=== PATIENT | male | born 1960 | race Hispanic/Latino ===

== ENCOUNTER 2018-11-18 11:09 | Inpatient (IN) | payer SELFPAY ==
[~2018-11-18] VITALS: Ht 177.8 cm; Wt 129.3 kg
[2018-11-18] MEDS ORDERED: SODIUM CHLORIDE 0.9% 1000ML 1,000 ML IV SCH (12:00)
[2018-11-18] MEDS ORDERED: DIATRIZOATE MEGL/DIATRIZOA SOD 30 ML BTL PO ONE ×2 (12:07→12:58)
[2018-11-18 12:17] LABS: BASOPHILS # (AUTO) 0.1 (0.0-0.1); BASOPHILS % 0.2 % (0.0-1.0); HEMATOCRIT 47.5 % (38.2-49.6); HEMOGLOBIN 16.7 g/dL (14.0-18.0); LYMPHOCYTES % 3.6 % (18.0-39.1); MEAN CORPUSCULAR HEMOGLOBIN 28.8 pg (28-32); MEAN CORPUSCULAR HGB CONC 35.2 g/dL (31-35); MEAN CORPUSCULAR VOLUME 81.9 fL (81-99); MONOCYTES # (AUTO) 1.8 (0.2-0.8); MONOCYTES % 6.2 % (4.4-11.3); NEUTROPHILS # (AUTO) 24.9 (2.1-6.9); NEUTROPHILS % 87.2 % (38.7-80.0); PLATELET COUNT 324 x10e3/uL (140-360); RED CELL DISTRIBUTION WIDTH 14.1 % (11.7-14.4)
[2018-11-18 12:28] LABS: AMPHETAMINES SCREEN,URINE NEGATIVE (NEGATIVE); BENZODIAZEPINES SCREEN,URINE NEGATIVE (NEGATIVE); PHENCYCLIDINE SCREEN,URINE NEGATIVE (NEGATIVE)
--- NOTE | 2018-11-18 12:36 | Diagnostic Imaging Report ---
Abdomen/KUB INDICATION: Right-sided abdominal pain, constipation COMPARISON: None. FINDINGS: Bowel: Gaseous distention of the transverse colon. No significant amount of stool in the large bowel. No pneumatosis. Small bowel loops are distended measuring up to 4.7 cm. No pneumatosis. Calcifications: None over the renal shadows or along the expected course of the ureters. Organomegaly: None Lung bases: Clear Bones: Degenerative changes of the spine. No focal osseous lesions. IMPRESSION: Distended small bowel loops suggestive of ileus or low-grade partial small bowel obstruction. Signed by: Dr. Jackie Jarquin MD on 11/18/2018 12:33 PM
[2018-11-18 12:38] LABS: COLOR,URINE BROWN (YELLOW)
[2018-11-18 12:38] LABS: MAGNESIUM 2.8 MG/DL (1.3-2.1)
[2018-11-18 12:39] LABS: CLARITY,URINE TURBID (CLEAR); KETONES,URINE 1+ (NEGATIVE); LEUKOCYTE ESTERASE ,URINE 1+ (NEGATIVE); NITRITE,URINE POSITIVE (NEGATIVE); PROTEIN,URINE DIPSTICK 3+ (NEGATIVE); URINE UROBILINOGEN 12 mg/dL (0.2 - 1)
[2018-11-18 12:40] LABS: AMORPHOUS SEDIMENT,URINE MODERATE (FEW); BACTERIA,URINE MODERATE /HPF; BILIRUBIN,URINE 3+ (NEGATIVE); EPITHELIAL CELLS,URINE FEW /LPF
[2018-11-18] MEDS ORDERED: ONDANSETRON HCL INJ 2 MG/ML VIAL IV NR (12:40)
[2018-11-18] MEDS ORDERED: ACETAMINOPHEN 1000 MG/100 ML IV STA (12:43)
[2018-11-18] MEDS ORDERED: FENTANYL CITRATE/PF 100MCG/2 ML INJ IV NR (12:45)
[2018-11-18 13:04] LABS: ALBUMIN/GLOBULIN RATIO 0.5 (0.8-2.0); ANION GAP 20.5 mmol/L (8-16); CALCIUM 10.3 mg/dL (8.4-10.2); CREATININE, SERUM 1.92 mg/dL (0.72-1.25); POTASSIUM 3.5 mmol/L (3.5-5.1)
[2018-11-18] MEDS ORDERED: PIPER-TAZ 3.375 GM 50 ML IV SCH (13:15)
[2018-11-18] MEDS ORDERED: PIPER-TAZ 3.375 GM 50 ML IV NR (13:30)
[2018-11-18] MEDS: METRONIDAZOLE 500MG/NS 100ML 100 ML IV SCH ×2 (14:06→18:00)
[2018-11-18] MEDS ORDERED: SODIUM CHLORIDE 0.9% 1000ML 1,000 ML IV ONE (14:15)
[2018-11-18 14:25] LABS: LYMPHOCYTES % (MANUAL) 5 % (19-48); MONOCYTES % (MANUAL) 4 % (3.4-9.0); NEUTROPHILS % (MANUAL) 91 % (40-74)
[2018-11-18 14:26] LABS: PLATELET ESTIMATE ADEQUATE; PLATELET MORPHOLOGY COMMENT NORMAL; RBC MORPHOLOGY COMMENT NORMAL
--- NOTE | 2018-11-18 15:25 | NUR ---
3RD BAG OF 0.9% NORMAL SALINE 1000ML BOLUS ADMINISTERED.
--- NOTE | 2018-11-18 15:52 | Diagnostic Imaging Report ---
CT Abdomen And Pelvis Without IV Contrast INDICATION: Abdominal pain, distention, evaluate for obstruction TECHNIQUE: 5 mm collimation axial images obtained from the diaphragm to the level of the pubic symphysis without nonionic intravenous contrast. Oral contrast was administered. RADIATION DOSE: Total DLP: 908.76 mGy*cm Estimated effective dose: (DLP x 0.015 x size factor) mSv CTDIvol has been reviewed. It is below the limits set by the Radiation Protocol Committee (RPC). Dose reduction techniques used: Automated exposure control, adjustment of the mAs and/or kVp according to patient size, standardized low-dose protocol, and/or iterative reconstruction technique. COMPARISON: None. ABDOMEN FINDINGS: Lung Bases: Mild bibasilar atelectasis. Liver: Decreased attenuation consistent with steatosis. Right lobe measures 23 cm in length. No mass. Gallbladder: Present and is markedly dilated with dependently layering subcentimeter stones/sludge. There is mural thickening and extensive pericholecystic inflammation. There is 2 mm calcification in what appears to be the cystic duct (axial image 26, coronal image 67). No intrahepatic biliary ductal dilatation. The common bile duct is not dilated. Pancreas: Diffuse fatty atrophy. No mass or ductal dilatation. Spleen: Normal in attenuation and size without mass. Adrenal Glands: No evidence for mass. Kidneys: Right Kidney: No renal calculus. No cortical mass or hydronephrosis. Left Kidney: No renal calculus. No cortical mass or hydronephrosis. Lymph Nodes: No lymphadenopathy. Aorta: Normal in diameter. Peritoneum/retroperitoneum: There is free fluid anterior to the right pararenal space. No loculated fluid collection. No free air. PELVIS FINDINGS: Bowel: Stomach: Contains enteric contrast and appears normal. Small Bowel: Enteric contrast reaches the mid small bowel. No dilatation or mural thickening. Large Bowel: Mild to moderate burden of stool throughout. No focal mural thickening or dilatation. Appendix: Normal. Bladder: Under distended but otherwise normal.. Prostate: Mildly prominent. Ureters: Not dilated. No pelvic free fluid or fluid collection. Bones: Moderate degenerative changes of the spine with flowing osteophytes of the lower thoracic spine suggestive of DISH. No compression deformities. No destructive lesions. Soft tissues: Mild left gynecomastia. IMPRESSION: 1. Marked gallbladder dilatation and pericholecystic inflammation consistent with acute cholecystitis. Multiple punctate intraluminal gallstones/sludge with suspected gallstone in the cystic duct. 2. No evidence for bowel obstruction or inflammation. Normal appendix. 3. Small amount of abdominal ascites. No pneumoperitoneum. 4. Steatosis and hepatomegaly. Findings discussed with Dr. Walsh at the time of dictation. Confirmed Signed by: Dr. Jackie Jarquin MD on 11/18/2018 3:49 PM
--- NOTE | 2018-11-18 15:58 | NUR ---
4TH BAG OF SODIUM CHLORIDE 0.9% 500CC 0F 1000ML ADMINISTERED.
[2018-11-18] MEDS ORDERED: ONDANSETRON HCL INJ 2 MG/ML VIAL IV PRN (16:30)
[2018-11-18] MEDS ORDERED: PANTOPRAZOLE 40 MG 10ML VIAL IV NR (16:30)
--- NOTE | 2018-11-18 16:33 | NUR ---
2ND HALF OF 4TH BAG OF SODIUM CHLORIDE 0.9% 500CC OF 1000CC RUNNING AT 125ML PER MD ORDERS.
--- OUTSIDE RECORDS SUMMARY | 2018-11-18 16:34 | XMS REPORT ---
Author Author [facility] Address Unknown Phone Unavailable Care Team Providers Care Bar Host Name Role Phone Marco Antonio VELAZQUEZ Unavailable Unavailable Problems This patient has no known problems. Allergies, Adverse Reactions, Alerts This patient has no known allergies or adverse reactions. Medications This patient has no known medications. Results Test Description Test Time Test Comments Text Results Atomic Results Result Comments CT ABDOMEN/PELVIS WO 2018-11-18 15:40:00 [place] [address] Patient Name: AINSLEY COELHO MR #: [id number] : 1960 Age/Sex: 58/M Req #: [id number] Adm Physician: Ordered by: NOLBERTO FONG [employer] CLINICAL NURSE SPECIALIST Report #: [id number] Location: ER Room/Bed: Procedure: [id number] CT/CT ABDOMEN/PELVIS WO Exam Date: 11/18/18 Exam Time: 1500 REPORT STATUS: Signed CT Abdomen And Pelvis Without IV Contrast I NDICATION: Abdominal pain, distention, evaluate for obstruction TECHNIQUE: 5 mm collimation axial images obtained from the diaphragm to the level of the pubic symphysis without nonionic intravenous contrast. Oral contrast was administered. RADIATION DOSE: Total DLP: 908.76 mGy*cm Estimated effective dose: (DLP x 0.015 x size factor) mSv CTDIvol has been reviewed. It is below the limits set by the Radiation Protocol Committee (RPC). Dose reduction techniques used: Automated exposure control, adjustment of the mAs and/or kVp according to patient size, standardized low- dose protocol, and/or iterative reconstruction technique. COMPARISON: None. ABDOMEN FINDINGS: Lung Bases: Mild bibasilar atelectasis. Liver: Decreased attenuation consistent with steatosis. Right lobe measures 23 cm in length. No mass. Gallbladder: Present and is markedly dilated with dependently layering subcentimeter stones/sludge. There is mural thickening and extensive pericholecystic inflammation. There is 2 mm calcification in what appears to be the cystic duct (axial image 26, coronal image 67). No intrahepatic biliary ductal dilatation. The common bile duct is not dilated. Pancreas: Diffuse fatty atrophy. No mass or ductal dilatation. Spleen: Normal in attenuation and size without mass. Adrenal Glands: No evidence for mass. Kidneys: Right Kidney: No renal calculus. No cortical mass or hydronephrosis. Left Kidney: No renal calculus. No cortical mass or hydronephrosis. Lymph Nodes: No lymphadenopathy. Aorta: Normal in diameter. Peritoneum/retroperitoneum: There is free fluid anterior to the right pararenal space. No loculated fluid collection. No free air. PELVIS FINDINGS: Bowel: Stomach: Contains enteric contrast and appears normal. Small Bowel: Enteric contrast reaches the mid small bowel. No dilatation or mural thickening. Large Bowel: Mild to moderate burden of stool throughout. No focal mural thickening or dilatation. Appendix: Normal. Bladder: Under distended but otherwise normal.. Prostate: Mildly prominent. Ureters: Not dilated. No pelvic free fluid or fluid collection. Bones: Moderate degenerative changes of the spine with flowing osteophytes of the lower thoracic spine suggestive of DISH. No compression deformities. No destructive lesions. Soft tissues: Mild left gynecomastia. IMPRESSION: 1. Marked gallbladder dilatation and pericholecystic inflammation consistent with acute cholecystitis. Multiple punctate intraluminal gallstones/sludge with suspected gallstone in the cystic duct. 2. No evidence for bowel obstruction or inflammation. Normal appendix. 3. Small amount of abdominal ascites. No pneumoperitoneum. 4. Steatosis and hepatomegaly. Findings discussed with Dr. Velazquez at the time of dictation. Confirmed Signed by: Dr. Anjel Jarquin MD on 11/18/2018 3:49 PM Dictated By: ANJEL JARQUIN MD 48 Transcribed By: JANET on 11/18/181548 COPY TO: NOLBERTO FONG NP ABDOMEN-1VIEW (KUB) 2018-11-18 12:30:00 [place] [address] Patient Name: AINSLEY COELHO MR #: [id number] : 1960 Age/Sex: 58/M Req #: [id number] Adm Physician: Ordered by: GUNJAN VELAZQUEZ MD Report #: [id number] Location: ER Room/Bed: Procedure: [id number] DX/ABDOMEN-1VIEW (KUB) Exam Date: 11/18/18 Exam Time: 1209 REPORT STATUS: Signed Abdomen/KUB INDICATION: Right-sided abdominal p ain, constipation COMPARISON: None. FINDINGS: Bowel: Gaseous distention of the transverse colon. No significant amount of stool in the large bowel. No pneumatosis. Small bowel loops are distended measuring up to 4.7 cm. No pneumatosis. Calcifications: None over the renal shadows or along the expected course of the ureters. Organomegaly: None Lung bases: Clear Bones: Degenerative changes of the spine. No focal osseous lesions. IMPRESSION: Distended small bowel loops suggestive of ileus or low-grade partial small bowel obstruction. Signed by: Dr. Anjel Jarquin MD on 11/18/2018 12:33 PM Dictated By: ANJEL JARQUIN MD 123 Transcribed By: JANET on 11/18/18 1233 COPY TO: GUNJAN VELAZQUEZ MD
--- NOTE | 2018-11-18 17:42 | NUR ---
Note gaby in EDM - 11/18/18 at 1750 by LAURA MAINTENANCE FLUIDS CHANGED TO 159ML/HR PER MD ORDERS OF REMAINING 4TH BAG OF SODIUM CHLORIDE 0.9%.
--- NOTE | 2018-11-18 17:42 | NUR ---
MAINTENANCE FLUIDS CHANGED TO 150ML/HR PER MD ORDERS OF REMAINING 4TH BAG OF SODIUM CHLORIDE 0.9%.
[2018-11-18 18:28] LABS: CREATINE KINASE MB 0.9 ng/mL (0-5.0)
--- NOTE | 2018-11-18 18:33 | Consultation ---
DATE OF CONSULTATION: November 18, 2018 REFERRING PHYSICIAN: Dr. Welch. HISTORY OF PRESENT ILLNESS: Patient is a 58-year-old male who presents with complaints of abdominal pain. He says he has had pain in the upper abdomen for a week. He says he initially had nausea and vomiting and this has improved. He had evaluation that reveals gallstones. He was sent home with pain medication and antibiotics, but the pain is persisted and got worse. He came back to the emergency room today. Evaluation with a CT of the abdomen reveals very dilated gallbladder with multiple stones and sludge. Calcification appeared separate from the gallbladder, possibly cystic duct or common bile duct. Patient also was noted to be jaundiced with an elevated bilirubin of 6.9. PAST MEDICAL HISTORY: Otherwise unremarkable. He denies chronic medical problems. ALLERGIES: THERE ARE NO KNOWN ALLERGIES. MEDICATIONS: There are no current medications. PAST SURGICAL HISTORY: No previous abdominal surgery. FAMILY HISTORY: Noncontributory. SOCIAL HISTORY: Patient denies smoking cigarettes or drink alcohol. REVIEW OF SYSTEMS: As stated above, otherwise was negative. PHYSICAL EXAMINATION GENERAL: The patient is awake and alert, in no distress. VITAL SIGNS: At this time reveal heart rate of 95, blood pressure is 127/74. HEENT: Reveals slight scleral icterus. NECK: Has no masses. LUNGS: Equal breath sounds, clear bilaterally. CARDIAC: Regular rate and rhythm. ABDOMEN: Distended. There is tenderness in the epigastrium and right upper quadrant. There is no mass. EXTREMITIES: No edema. NEUROLOGIC: Grossly intact. LABORATORY TESTS: White blood cell count was 28,000, hemoglobin 16.7, hematocrit 47.5. Chemistries reveal sodium 128, the creatinine is elevated at 1.9, BUN is 32. Lactic acid is elevated at 20.2. Bilirubin is 6.9. ASSESSMENT: A 58-year-old male with acute cholecystitis and jaundice, possible common bile duct stone. He had been evaluated with MRCP and had given IV fluids for resuscitation, IV antibiotics, and he may benefit either from cholecystectomy or from percutaneous cholecystostomy or cholecystectomy done at later time. This was all explained to the patient including all risks, benefits, and alternatives. He understands. He has had the opportunity to ask questions. Thank you for asking me to see Mr. Barnes. Job#: [id number] RTY
[2018-11-18 19:03] VITALS: BP 120/73
--- NOTE | 2018-11-18 19:03 | NUR ---
PT ARRIVING TO UNIT VIA STRETCHER, PT ALERT AND ORIENTED, NO DISTRESS NOTED, CALL LIGHT IN REACH, INSTRUCTED TO CALL WITH NEEDS
--- NOTE | 2018-11-18 19:41 | Diagnostic Imaging Report ---
EXAM: MRI MRCP WO INDICATION: Acute cholecystitis. Elevated bilirubin COMPARISON: CT of the abdomen and pelvis November 18, 2018 TECHNIQUE: Multiplanar and multisequence imaging was performed of the abdomen without the administration of IV contrast using MRCP protocol. 3-D reformations created of the biliary system. FINDINGS: LOWER THORAX: Unremarkable. LIVER: Hepatic steatosis. GALLBLADDER: Hydropic gallbladder with wall thickening and pericholecystic fluid and inflammation. Small layering gallstones. No intrahepatic biliary dilation. The common bile duct is within normal size limits measuring 5 mm and without filling defect. SPLEEN: Normal PANCREAS: Not well visualized on this exam secondary to motion. Fatty infiltration of the pancreatic head and adjacent inflammation from the gallbladder. ADRENALS: No nodules KIDNEYS/URETERS: No masses or hydronephrosis. GI TRACT: Reactive thickening of the second portion of the duodenum and colon at the splenic flexure. Remainder of the visualized bowel is unremarkable. LYMPH NODES: No lymphadenopathy VESSELS: Within normal limits for technique PERITONEUM / RETROPERITONEUM: Right upper quadrant inflammation without organized fluid collection. BONES: No acute findings SOFT TISSUES: Unremarkable IMPRESSION: Cholelithiasis and acute cholecystitis without choledocholithiasis. Signed by: Dr. Luciana Lane M.D. on 11/18/2018 7:38 PM
[2018-11-18 20:00] VITALS: BP 127/75
[2018-11-18] MEDS: SODIUM CHLORIDE 0.9% 1000ML 1,000 ML IV SCH (20:00)
[2018-11-18] MEDS: PIPER-TAZ 3.375 GM 50 ML IV SCH (21:00)
[2018-11-18 21:02] VITALS: BP 127/75
[2018-11-18] MEDS: MORPHINE SULFATE INJ 4 MG/ML INJ IV PRN (23:32)
[2018-11-19] VITALS (7 sets, daily range): BP systolic 123–141; BP diastolic 66–74
[2018-11-19] MEDS: PIPER-TAZ 3.375 GM 50 ML IV SCH ×3 (01:00→11:51)
[2018-11-19] MEDS: SODIUM CHLORIDE 0.9% 1000ML 1,000 ML IV SCH ×3 (03:23→22:45)
[2018-11-19] MEDS: METRONIDAZOLE 500MG/NS 100ML 100 ML IV SCH ×2 (05:37)
--- NOTE | 2018-11-19 05:39 | NUR ---
PT RESTING IN BED WITH EYES CLOSED, NO DISTRESS NOTED, IV INFUSING PER ORDER, CALL LIGHT IN REACH
[2018-11-19 05:56] LABS: BASOPHILS % 0.1 % (0.0-1.0); HEMOGLOBIN 13.1 g/dL (14.0-18.0); LYMPHOCYTES # (AUTO) 0.9 (1.0-3.2); LYMPHOCYTES % 5.5 % (18.0-39.1); MEAN CORPUSCULAR HEMOGLOBIN 28.5 pg (28-32); MEAN CORPUSCULAR HGB CONC 34.5 g/dL (31-35); MEAN CORPUSCULAR VOLUME 82.6 fL (81-99); MONOCYTES # (AUTO) 1.1 (0.2-0.8); MONOCYTES % 6.8 % (4.4-11.3); NEUTROPHILS # (AUTO) 14.5 (2.1-6.9); NEUTROPHILS % 85.8 % (38.7-80.0); PLATELET COUNT 207 x10e3/uL (140-360); RED CELL DISTRIBUTION WIDTH 14.1 % (11.7-14.4)
[2018-11-19 06:14] LABS: ALANINE AMINOTRANSFERASE 37 IU/L (0-55); ALBUMIN/GLOBULIN RATIO 0.4 (0.8-2.0); ALKALINE PHOSPHATASE 96 IU/L (40-150); ANION GAP 13.4 mmol/L (8-16); BLOOD UREA NITROGEN 23 mg/dL (7-26); BUN/CREATININE RATIO 23 (6-25); CALCIUM 8.3 mg/dL (8.4-10.2); CARBON DIOXIDE 20 mmol/L (22-29); CHLORIDE 102 mmol/L (98-107); CHOL/HDL RATIO 5.9 (3.9-4.7); CHOLESTEROL 89 MD/DL (0-199); CREATININE, SERUM 0.99 mg/dL (0.72-1.25); EST GLOMERULAR FILTRATION RATE > 60 ML/MIN (60-); GLUCOSE 185 mg/dL (74-118); HDL CHOLESTEROL 15 MG/DL (40-60); LDL CHOLESTEROL 49 MG/DL (60-130); POTASSIUM 3.4 mmol/L (3.5-5.1); SODIUM 132 mmol/L (136-145); TRIGLYCERIDES 124 MG/DL (0-149)
[2018-11-19 06:32] LABS: CREATINE KINASE 95 IU/L (30-200)
[2018-11-19] MEDS: MORPHINE SULFATE INJ 4 MG/ML INJ IV PRN ×2 (07:50→13:50)
--- NOTE | 2018-11-19 08:15 | NUR ---
Patient resting in bed, AAOx3. npo, on IV fluids, c/o pain on lower abdomen. medicated with prn pain med. not in any distress. call light in reach family at bed side. Dr Welch had rounds
[2018-11-19] MEDS ORDERED: POTASSIUM CHLORIDE 20MEQ/100ML 200 ML IV ONE (09:15)
[2018-11-19] MEDS: PANTOPRAZOLE 40 MG 10ML VIAL IV SCH (09:45)
[2018-11-19] MEDS: POTASSIUM CHLORIDE 20MEQ/100ML 100 ML IV SCH ×2 (09:45→12:43)
--- NOTE | 2018-11-19 12:17 | History and Physical ---
CHIEF COMPLAINT: Right upper quadrant abdominal pain. HISTORY OF PRESENT ILLNESS: This is a 58-year-old male morbidly obese who came into the ED with complaints of a 5-day history of right upper quadrant abdominal pain that has been ongoing. Patient reports that this began on in the evening time. He initially thought it was some acid reflux but never resolved. He also thought it was constipation, took some stool softeners with no result. Patient then presented to the ED for further evaluation and management and care. While here in the ED, imaging studies showed evidence of acute cholecystitis. General surgery and GI were consulted. REVIEW OF SYSTEMS PERTINENT POSITIVES: Nausea, vomiting, decreased oral intake, dehydration, right upper quadrant abdominal pain. PERTINENT NEGATIVES: Denies any chest pain, palpitations, dysuria, hematuria, frequency, urgency, lightheadedness, dizziness, headache, shortness of breath, cough, congestion, or any other complaints. Rest of the 14-point review of systems reviewed with patient and are negative. ALLERGIES: NO KNOWN DRUG ALLERGIES. HOME MEDICATIONS: None. PAST SURGICAL HISTORY: Reports none. PAST MEDICAL HISTORY: Reports none. FAMILY HISTORY: Hypertension, diabetes. SOCIAL HISTORY: No drugs. No alcohol. Does not smoke. Good social support. VITAL SIGNS: Temperature is 98.2, pulse is 104, respiratory rate is 20, blood pressure 127/69, pulse ox 96% on room air. LABORATORY DATA: Lab findings show white count 16.8, hemoglobin 13, hematocrit 38, platelets of 207. Chemistry: Sodium 133, potassium 3.4, chloride 102, bicarb 20, anion gap 13, BUN is 22, creatinine is 0.99, total bilirubin is 3. LFTs were normal. Troponins were negative. CK-MB negative. LDL 49, lipase level was 24. Urinalysis concerning for underlying UTI. Urine drug screen negative. Serology screen was negative. MICROBIOLOGY: Blood cultures pending. IMAGING STUDIES: CT abdomen and pelvis. Marked gallbladder distention with pericholecystic inflammation consistent with acute cholecystitis. No evidence of bowel obstruction, inflammation. Normal appendix. Small amounts of abdominal ascites. No pneumoperitoneum, steatosis, or hepatomegaly. Abdominal x-ray shows distended small bowel suggestive of at least a low-grade partial small-bowel obstruction. MRCP: cholelithiasis with acute cholecystitis without choledocholithiasis. PHYSICAL EXAM GENERAL: Not in acute distress, though oriented x3, cooperative on examination. HEENT: Head is normocephalic, atraumatic. Eyes: pupils are equal and reactive to light bilaterally. Extraocular movements are intact bilaterally. NECK: Supple. Good range of motion. THROAT: No evidence of any erythema or exudates in the posterior pharynx. Has poor dentition. PULMONARY: Clear to auscultation bilaterally. No wheezing, no rales, no rhonchi, no crackles appreciated. CARDIOVASCULAR: Positive S1 and S2. No murmurs, rubs, or gallops appreciated. ABDOMEN: Soft, nondistended. Bowel sounds present. He has right upper quadrant tenderness on examination. MUSCULOSKELETAL: Strength is 5/5 throughout. No evidence of any musculoskeletal deficits. No weakness appreciated. NEUROLOGIC: Cranial nerves II-XII are grossly intact. No evidence of any neurologic deficits on exam. SKIN: Is intact. Warm to touch. Good cap refill. PSYCHIATRIC: Normal affect and mood. EXTREMITIES: No edema. Good range of motion throughout. IMPRESSIONS 1. Acute cholecystitis. 2. Nausea, vomiting, dehydration. 3. Hypokalemia. PLAN: General surgery was consulted. He is scheduled to have a cholecystectomy laparoscopically later today by general surgery. Continue with pain control, IV fluids. Resume same home medications. Currently his electrolytes are stable. We will get a.m. labs. Also put on IV antibiotics and which he is currently on. He does have an elevated white count which will repeat labs in the morning and this is likely due to acute cholecystitis. Will follow through tomorrow. Likely will be discharged tomorrow. His troponins were negative. So no further workup was needed from that standpoint. Plus, she denies any chest pain on examination nor any history of any chest pain. Job#: [id number] DEVEN
[2018-11-19] MEDS ORDERED: FENTANYL CITRATE/PF 100MCG/2 ML INJ ONE ×2 (14:10→19:52)
[2018-11-19] MEDS ORDERED: KETAMINE HCL INJ 50 MG/ML 10 ML VIAL ONE (14:10)
[2018-11-19] MEDS ORDERED: LIDOCAINE HCL 2% LOCAL INJ 5 ML SDV VIAL INJ ONE (14:24)
[2018-11-19] MEDS ORDERED: ROCURONIUM BROMIDE 10 MG/ML 5ML VIAL ONE (14:24)
[2018-11-19] MEDS ORDERED: SEVOFLURANE INHAL SOLN 250 ML PEN BTL ONE (14:24)
[2018-11-19] MEDS ORDERED: PROPOFOL IV EMULSION 10 MG/ML 20 ML VIAL ONE (14:24)
[2018-11-19 14:31] LABS: CREATINE KINASE MB 0.9 ng/mL (0-5.0)
[2018-11-19] MEDS ORDERED: BUPIVACAINE HCL 0.5% INJ 30 ML VIAL INJ ONE (16:39)
--- NOTE | 2018-11-19 17:46 | NUR ---
Patient off the unit for procedure, AAOx3, family at bedside
[2018-11-19] MEDS ORDERED: ONDANSETRON HCL INJ 2 MG/ML VIAL IV PRN (19:30)
[2018-11-19] MEDS ORDERED: HYDROCODONE/APAP 7.5MG-325MG 1 EA TAB PO PRN (19:30)
[2018-11-19] MEDS ORDERED: HYDROMORPHONE 2MG/ML 2 MG/ML ML ONE (20:11)
--- NOTE | 2018-11-19 20:40 | NUR ---
pt received from PACU alert and oriented x3. Breathing even, unlabored. Skin warm, dry to touch. Denies any distress/discomfort. Dsg to abdomen over 3x trocars and 1x ERIC drain to abdomen. Provided pt with some ice chips. Pt tolerated well. Call light within reach. Will continue to monitor.
--- NOTE | 2018-11-19 22:10 | NUR ---
Emptied 40cc of dark sanguineous drainage from ERIC drain.
--- NOTE | 2018-11-19 23:00 | NUR ---
Pt voided in the urinal 450cc of dark kim urine.
[2018-11-20] VITALS (7 sets, daily range): BP systolic 120–152; BP diastolic 62–77
--- NOTE | 2018-11-20 00:22 | Operative Report ---
DATE OF PROCEDURE: November 19, 2018 PREOPERATIVE DIAGNOSIS: Acute cholecystitis and cholelithiasis. POSTOPERATIVE DIAGNOSIS: Acute gangrenous cholecystitis with cholelithiasis. PROCEDURES 1. Diagnostic laparoscopy. 2. Laparoscopic cholecystectomy. CONTACT CENTER ASSISTANT: None. ANESTHESIA: General. INDICATIONS AND FINDINGS: This is a 58-year-old male who presented with complaints of severe epigastric right upper quadrant abdominal pain, which he had for a week. Workup suggested acute cholecystitis. At surgery, the patient has acutely inflamed gangrenous gallbladder containing multiple small stones. Cystic duct was about 3 mm in diameter. Common bile duct was not well seen. Liver, stomach, and lower abdomen all appeared normal. TECHNIQUE: After adequate general endotracheal anesthesia with the patient in the supine position, the abdomen was prepped and draped in a sterile fashion with ChloraPrep solution. Skin in the umbilicus was infiltrated with 0.5% Marcaine. Incision was made in the umbilicus. Abdominal wall was elevated and Veress needle was introduced. Pneumoperitoneum was then created. A 10-mm trocar and cannula was then passed through the umbilical wound. Laparoscopic camera was introduced. Initial laparoscopy revealed inflammatory process in the right upper quadrant. A 10-mm trocar and cannula was placed in the epigastrium and two 5-mm trocars and cannulas were placed in the right upper quadrant. These were placed under direct vision. There was omentum adherent over an acutely inflamed gallbladder, which appeared gangrenous. Omentum was dissected away from the gallbladder. Gallbladder was tense and was decompressed with a needle. Fundus was grasped and tracked superiorly and adhesions of omentum to the gallbladder were lysed exposing the neck of the gallbladder and neck of the gallbladder scratched and retracted laterally. Peritoneum over the neck of the gallbladder was incised. The gallbladder and cystic duct junction was dissected free. Cystic artery was seen running along the inferior aspect of the gallbladder. This was dissected free and divided between hemoclips. The cystic duct was then divided between hemoclips with 3 clips being left on the common bile duct side. There was a posterior branch of the cystic artery that was also divided between hemoclips. The gallbladder was dissected free from the liver using scissors and electrocautery. Once it was entirely free, it was placed into an Endopouch and brought out through the epigastric cannula and contained multiple small stones. Gallbladder bed was inspected for hemostasis. One point was bleeding which was controlled with electrocautery and it was irrigated with saline. All fluid was aspirated and inspected for hemostasis, which was seen to be adequate. Instruments and cannulas were then removed. Pneumoperitoneum was evacuated. A 19-Romanian Mickey drain was then placed in the abdomen, brought out through the most lateral right upper quadrant cannula site, and placed in Allison's pouch. The wound was inspected for hemostasis once again, which was seen to be adequate. Instruments and cannulas were then removed. Pneumoperitoneum was evacuated. Wounds were then closed. Fascia in the umbilical and epigastric wound closed with 0 Vicryl. Skin to all wounds closed with delilah. Sterile dressings were applied to each wound. The patient tolerated the procedure well. Estimated blood loss was 125 mL. There were no complications. All counts were correct. Patient was taken to the recovery room in satisfactory condition. Job#: [id number] GAU cc:Pam Welch MD
[2018-11-20] MEDS: PIPER-TAZ 3.375 GM 50 ML IV SCH ×5 (05:28→23:50)
[2018-11-20 05:59] LABS: BASOPHILS % 0.2 % (0.0-1.0); HEMATOCRIT 37.4 % (38.2-49.6); HEMOGLOBIN 12.6 g/dL (14.0-18.0); MEAN CORPUSCULAR HGB CONC 33.7 g/dL (31-35); MEAN CORPUSCULAR VOLUME 83.1 fL (81-99); MONOCYTES % 9.2 % (4.4-11.3); NEUTROPHILS # (AUTO) 9.1 (2.1-6.9); PLATELET COUNT 199 x10e3/uL (140-360); RED CELL DISTRIBUTION WIDTH 14.5 % (11.7-14.4)
[2018-11-20 06:20] LABS: ALANINE AMINOTRANSFERASE 28 IU/L (0-55); ALBUMIN 1.8 g/dL (3.5-5.0); ALBUMIN/GLOBULIN RATIO 0.4 (0.8-2.0); ALKALINE PHOSPHATASE 93 IU/L (40-150); BLOOD UREA NITROGEN 16 mg/dL (7-26); BUN/CREATININE RATIO 18 (6-25); CALCIUM 7.9 mg/dL (8.4-10.2); CARBON DIOXIDE 22 mmol/L (22-29); CHLORIDE 105 mmol/L (98-107); CREATININE, SERUM 0.87 mg/dL (0.72-1.25); EST GLOMERULAR FILTRATION RATE > 60 ML/MIN (60-); GLUCOSE 200 mg/dL (74-118); SODIUM 134 mmol/L (136-145)
[2018-11-20] MEDS: MORPHINE SULFATE INJ 4 MG/ML INJ IV PRN ×2 (07:25→20:50)
--- NOTE | 2018-11-20 07:34 | NUR ---
PATIENT IN BED RESTING WITH NO RESPIRATORY DISTRESS. C/O PAIN TO ABDOMEN, PAIN MEDICATION ADMINISTERED ORDERED. 3 TROCAR SITED TO ABDOMEN, ERIC DRAIN TO RIGHT ABDOMEN. SCD IN PLACE. BED IN LOWER AND LOCKED. CALL LIGHT AT REACH.
[2018-11-20] MEDS: PANTOPRAZOLE 40 MG 10ML VIAL IV SCH (09:44)
--- NOTE | 2018-11-20 10:22 | Progress Note ---
DATE: November 20, 2018 MEDICINE PROGRESS NOTE SUBJECTIVE: Patient is doing much better today. He is status post laparoscopic cholecystectomy performed yesterday. He has a drain right now. PHYSICAL EXAMINATION VITAL SIGNS: Temperature is 98.9, pulse is 100, respiratory rate is 18, blood pressure 133/77, pulse ox 95% on room air. GENERAL: Not in acute distress, alert and oriented x3. Cooperative on examination. HEENT: Head is normocephalic and atraumatic. Eyes: Pupils equal, round and reactive to light bilaterally. Extraocular movements intact bilaterally. NECK: Supple. Good range of motion. Throat with no evidence of any erythema or exudates in the posterior pharynx. Has poor dentition. PULMONARY: Clear to auscultation bilaterally. No wheezing. No rales. No rhonchi. No crackles appreciated. CARDIOVASCULAR: Positive S1 and S2. No murmurs, rubs, or gallops appreciated. ABDOMEN: Soft, nondistended and nontender to palpation. Bowel sounds present. MUSCULOSKELETAL: Strength is 5/5 throughout. No evidence of any muscle deficit on examination. No weakness appreciated. NEUROLOGICAL: Cranial nerves II through XII are grossly intact. No evidence of any neurological deficits on exam. SKIN: Intact. Warm to touch. Good cap refill. PSYCHIATRIC: Normal affect and mood. EXTREMITIES: No edema. Good range of motion throughout. LAB FINDINGS: Show white count 11.2, hemoglobin 12.6, hematocrit is 37, and platelets of 199. Chemistries: Sodium 134, potassium 4, chloride 105, bicarb 22, anion gap of 11, BUN 16, creatinine 0.87. His albumin is 1.8. MICROBIOLOGY: Blood cultures, no growth. Urine cultures are pending. IMAGING STUDIES: None currently. IMPRESSION 1. Status post laparoscopic cholecystectomy, now with Levi-Nur drain. 2. Nausea, vomiting and dehydration, all resolved. 3. Abdominal distension. 4. Hypokalemia, resolved. PLAN: At this time, continue with postoperative care. He still has a ERIC drain. He is on clear liquid diet, but he is not eating much. Continue with pain control and antinausea medication. Follow general surgery recommendations. Per general surgery, they recommended another 1 to 2 more days to evaluate for the drainage to improve. Continue with IV antibiotics. Job#: [id number] BARBIE
--- NOTE | 2018-11-20 11:30 | NUR ---
ASSISTED WITH URINAL, PATIENT VOIDED 500CC OF DARK ANCELMO URINE. URINAL EMPTIED AND CLEANSED. BED IN LOWER POSITION, CALL LIGHT AT REACH.
--- NOTE | 2018-11-20 11:33 | NUR ---
SOCIAL WORK INITIAL ASSESSMENT Quill Cleaner to bedside to discuss plan of care with patient/family. CM/SW role and care transitions discussed. Anticipated discharge plan discussed along with duration of care. CM/SW discussed patients right to make decisions in care. CM/SW work hours given. 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 RESOURCES THAT PATIENT MAY BE ABLE TO FOLLOW UP UPON DISCHARGE. PT EDUCATED ON EACH RESOURCE AND UNDERSTANDING HOW TO FOLLOW UP TO SEE IF QUALIFIED FOR EACH RESOURCE. Education Needs: NONE IMM/EPPS given and signed (if applicable): NA Goal for discharge: RETURN HOME INDEPENDENTLY CM/SW left business card at the bedside with contact information. Name and number was also written on the patients whiteboard. Patient verbalized understanding of discussion. CM will follow-up with ongoing discharge and transition of care needs.
[2018-11-20] MEDS: SODIUM CHLORIDE 0.9% 1000ML 1,000 ML IV SCH ×2 (14:57→19:47)
--- NOTE | 2018-11-20 16:18 | NUR ---
PATIENT ASSISTED TO THE RESTROOM AND BACK TO BED. HAD A LARGE BM. 50 CC OF BLOODY FLUID REMOVED FROM ERIC DRAIN. BED IN LOWER POSITION, CALL LIGHT AT REACH.
--- NOTE | 2018-11-20 20:50 | NUR ---
Pt resting in bed, semi-rivera's position, alert and oriented x3 watching tv. No visible s/s of distress/discomfort at this time. Pain to abdomen when moving and coughing. Emptied 20cc of sanguineous drainage with clots. Bandages to abdomen dry and intact. IV fluids to left ac. Pt states tolerating diet without nausea/vomiting. Call light within reach. Will continue to monitor.
[2018-11-21] VITALS (9 sets, daily range): BP systolic 112–139; BP diastolic 60–74
[2018-11-21] MEDS: SODIUM CHLORIDE 0.9% 1000ML 1,000 ML IV SCH (05:00)
[2018-11-21] MEDS: MORPHINE SULFATE INJ 4 MG/ML INJ IV PRN ×2 (05:13→12:24)
[2018-11-21] MEDS: PIPER-TAZ 3.375 GM 50 ML IV SCH ×3 (05:30→18:29)
[2018-11-21 05:56] LABS: BASOPHILS % 0.4 % (0.0-1.0); HEMATOCRIT 35.3 % (38.2-49.6); HEMOGLOBIN 11.7 g/dL (14.0-18.0); LYMPHOCYTES % 12.3 % (18.0-39.1); MEAN CORPUSCULAR HEMOGLOBIN 27.9 pg (28-32); MEAN CORPUSCULAR HGB CONC 33.1 g/dL (31-35); MEAN CORPUSCULAR VOLUME 84.2 fL (81-99); MONOCYTES # (AUTO) 0.7 (0.2-0.8); MONOCYTES % 8.3 % (4.4-11.3); NEUTROPHILS # (AUTO) 6.3 (2.1-6.9); NEUTROPHILS % 77.9 % (38.7-80.0); PLATELET COUNT 186 x10e3/uL (140-360); RED BLOOD COUNT 4.19 x10e6/uL (4.3-5.7); RED CELL DISTRIBUTION WIDTH 14.4 % (11.7-14.4)
[2018-11-21 06:31] LABS: ANION GAP 10.2 mmol/L (8-16); BLOOD UREA NITROGEN 11 mg/dL (7-26); BUN/CREATININE RATIO 14 (6-25); CALCIUM 7.7 mg/dL (8.4-10.2); CARBON DIOXIDE 24 mmol/L (22-29); CHLORIDE 103 mmol/L (98-107); CREATININE, SERUM 0.76 mg/dL (0.72-1.25); EST GLOMERULAR FILTRATION RATE > 60 ML/MIN (60-); GLUCOSE 162 mg/dL (74-118); POTASSIUM 3.2 mmol/L (3.5-5.1); SODIUM 134 mmol/L (136-145)
--- NOTE | 2018-11-21 06:40 | NUR ---
Handoff report rec'd in walking rounds. Pt AOx3, able to verbalize needs. Encouraged patient to sit up at 30 degrees and to use incentive spirometer. Pt vebalized understanding. POC discussed with family at bedside. Call light in reach.
[2018-11-21] MEDS: PANTOPRAZOLE 40 MG 10ML VIAL IV SCH (08:49)
[2018-11-21] MEDS ORDERED: FUROSEMIDE INJ 10 MG/ML 4 ML VIAL IV NR (10:00)
[2018-11-21] MEDS: POTASSIUM CHLORIDE 20 MEQ TAB CR PO SCH ×2 (10:07→17:00)
--- NOTE | 2018-11-21 10:14 | Progress Note ---
DATE: November 21, 2018 MEDICINE PROGRESS NOTE SUBJECTIVE: Patient is doing well today. He was short of breath according to the nursing staff. IV fluids were held. He is not getting up and walking. Will get PT to get the patient ambulating. Lasix will be ordered. PHYSICAL EXAMINATION VITAL SIGNS: Temperature is 96.8, pulse 87, respiratory rate is 20, blood pressure is 134/68, pulse ox 98% on nasal cannula. GENERAL: Not in acute distress, alert and oriented x3. Cooperative on examination. HEENT: Head is normocephalic and atraumatic. Eyes: Pupils equal, round and reactive to light bilaterally. Extraocular movements intact bilaterally. NECK: Supple. Good range of motion. Throat with no evidence of any erythema or exudates in the posterior pharynx. Has poor dentition. PULMONARY: Clear to auscultation bilaterally. No wheezing. No rales. No rhonchi. No crackles appreciated. CARDIOVASCULAR: Positive S1 and S2. No murmurs, rubs, or gallops appreciated. ABDOMEN: Soft, nondistended, nontender to palpation. Bowel sounds present. MUSCULOSKELETAL: Strength is 5/5 throughout. No evidence of any muscle deficit on examination. No weakness appreciated. NEUROLOGICAL: Cranial nerves II through XII are grossly intact. No evidence of any neurological deficits on exam. SKIN: Intact. Warm to touch. Good cap refill. PSYCHIATRIC: Normal affect and mood. EXTREMITIES: No edema. Good range of motion throughout. LAB FINDINGS: Show white count 8, hemoglobin 11.9, hematocrit is 35, platelets of 186. Chemistries: Sodium 134, potassium 3.2, chloride is 103, bicarb is 24, anion gap of 10, BUN is 11, creatinine is 0.76, glucose is 162, and his calcium is 7.7. MICROBIOLOGY: Cultures are negative. IMAGING STUDIES: None. IMPRESSIONS 1. Status post laparoscopic cholecystectomy with Levi-Nur drain. 2. Nausea, vomiting and dehydration, all resolved. 3. Abdominal distension. 4. Hypokalemia. 5. Shortness of breath. PLAN: At this time, give IV Lasix, discontinue IV fluids. Will get chest x-ray as well. Replace potassium. Continue postoperative care. Once cleared by surgery, will discharge home likely tomorrow. Get PT/OT to ambulate the patient. Job#: [id number] TA
--- NOTE | 2018-11-21 12:08 | Diagnostic Imaging Report ---
EXAMINATION: CHEST SINGLE (PORTABLE) INDICATION: Shortness of breath. COMPARISON: None FINDINGS: TUBES and LINES: None. LUNGS: Low lung volumes which decreases sensitivity and specificity for pathology. Central vascular congestion. No kayla pulmonary edema. Mild patchy bibasilar opacities, likely atelectasis. PLEURA: No pleural effusion or pneumothorax. HEART AND MEDIASTINUM: The cardiomediastinal silhouette is unremarkable. BONES AND SOFT TISSUES: No acute osseous lesion. Soft tissues are unremarkable. UPPER ABDOMEN: No free air under the diaphragm. IMPRESSION: Low lung volumes and central vascular congestion. No evidence of pulmonary edema. Mild patchy bibasilar opacities, likely atelectasis. Signed by: Dr. Cristian Flores MD on 11/21/2018 12:05 PM
[2018-11-21] MEDS ORDERED: POTASSIUM CHLORIDE 20 MEQ TAB CR PO SCH (19:00)
[2018-11-22] VITALS (7 sets, daily range): BP systolic 112–140; BP diastolic 65–78
[2018-11-22] MEDS: PIPER-TAZ 3.375 GM 50 ML IV SCH ×4 (00:03→18:03)
[2018-11-22 06:13] LABS: BASOPHILS % 0.5 % (0.0-1.0); EOSINOPHILS % 0.5 % (0.0-6.0); HEMATOCRIT 35.2 % (38.2-49.6); HEMOGLOBIN 11.5 g/dL (14.0-18.0); LYMPHOCYTES # (AUTO) 1.6 (1.0-3.2); LYMPHOCYTES % 25.7 % (18.0-39.1); MEAN CORPUSCULAR HEMOGLOBIN 28.3 pg (28-32); MEAN CORPUSCULAR HGB CONC 32.7 g/dL (31-35); MEAN CORPUSCULAR VOLUME 86.5 fL (81-99); MONOCYTES # (AUTO) 0.6 (0.2-0.8); MONOCYTES % 9.8 % (4.4-11.3); NEUTROPHILS # (AUTO) 3.7 (2.1-6.9); NEUTROPHILS % 61.4 % (38.7-80.0); PLATELET COUNT 217 x10e3/uL (140-360); RED BLOOD COUNT 4.07 x10e6/uL (4.3-5.7); RED CELL DISTRIBUTION WIDTH 14.5 % (11.7-14.4)
[2018-11-22 06:29] LABS: ANION GAP 9.1 mmol/L (8-16); BLOOD UREA NITROGEN 12 mg/dL (7-26); BUN/CREATININE RATIO 14 (6-25); CALCIUM 8.1 mg/dL (8.4-10.2); CARBON DIOXIDE 28 mmol/L (22-29); CHLORIDE 100 mmol/L (98-107); CREATININE, SERUM 0.84 mg/dL (0.72-1.25); EST GLOMERULAR FILTRATION RATE > 60 ML/MIN (60-); GLUCOSE 135 mg/dL (74-118); POTASSIUM 4.1 mmol/L (3.5-5.1); SODIUM 133 mmol/L (136-145)
--- NOTE | 2018-11-22 06:45 | NUR ---
HANDOFF REPORT REC'D DURING WALKING ROUNDS WITH OUTGOING SINGER BACK TENDER NURSE. PT AWAKE AT THIS TIME AND DENIES ANY C/O.
[2018-11-22 06:50] LABS: ANISOCYTOSIS S; LYMPHOCYTES % (MANUAL) 21 % (19-48); MONOCYTES % (MANUAL) 11 % (3.4-9.0); NEUTROPHILS % (MANUAL) 68 % (40-74); PLATELET ESTIMATE ADEQUATE; PLATELET MORPHOLOGY COMMENT NORMAL; POIKILOCYTOSIS S; RBC MORPHOLOGY COMMENT NORMAL
[2018-11-22] MEDS ORDERED: POTASSIUM CHLORIDE 20 MEQ TAB CR PO SCH (09:00)
[2018-11-22] MEDS: PANTOPRAZOLE 40 MG 10ML VIAL IV SCH (09:00)
--- NOTE | 2018-11-22 10:38 | Progress Note ---
DATE: November 22, 2018 MEDICINE PROGRESS NOTE SUBJECTIVE: Patient is doing much better today. General surgery wants to keep him overnight for another day and encourage ambulation. PHYSICAL EXAMINATION VITAL SIGNS: Temperature is 96.2, pulse 80, respiratory rate 18, blood pressure 124/78. Pulse ox 95% on room air. LAB FINDINGS: White count 6.1, hemoglobin 9.5, hematocrit 35, platelets 217. Chemistries: Sodium 133, potassium 4.1, chloride 100, bicarb 20, anion gap 9.1, BUN 12, creatinine 0.8, glucose 135, calcium 8.1. MICROBIOLOGY: Blood and urine cultures were negative. PHYSICAL EXAMINATION GENERAL: Not in acute distress, alert and oriented x3. Cooperative on examination. HEENT: Head is normocephalic and atraumatic. Eyes: Pupils equal, round and reactive to light bilaterally. Extraocular movements intact bilaterally. NECK: Supple. Good range of motion. Throat: No evidence of any erythema or exudates in the posterior pharynx. Has poor dentition. PULMONARY: Clear to auscultation bilaterally. No wheezing. No rales. No rhonchi. No crackles appreciated. CARDIOVASCULAR: Positive S1 and S2. No murmurs, rubs, or gallops appreciated. ABDOMEN: Soft, nondistended, nontender to palpation. Bowel sounds present. MUSCULOSKELETAL: Strength is 5/5 throughout. No evidence of any musculoskeletal deficit on examination. No weakness appreciated. NEUROLOGICAL: Cranial nerves II through XII are grossly intact. No evidence of any neurological deficits on exam. SKIN: Intact. Warm to touch. Good cap refill. PSYCHIATRIC: Normal affect and mood. EXTREMITIES: No edema. Good range of motion throughout. IMPRESSIONS 1. Status post laparoscopic cholecystectomy with Levi-Nur drain. 2. Nausea, vomiting and dehydration, all resolved. 3. Abdominal distension, resolved. 4. Hypokalemia, resolved. 5. Shortness of breath, resolved. PLAN: At this time, get a.m. labs. The patient will be here overnight to monitor his ambulation status. He is tolerating diet well. Pain is well controlled. Chest x-ray shows no evidence of pulmonary edema. Otherwise, he is doing much better. We will monitor him overnight and likely discharge home tomorrow. Job#: [id number]
--- NOTE | 2018-11-22 19:04 | NUR ---
received patient sleeping in bed, easily awakes. aaox3. denies needs at this time. patient in stable condition. bed locked and in lowest position, call light within reach. encouraged to call for assistance as needed, patient verbalized understanding.
[2018-11-23] VITALS: BP 122/65
[2018-11-23] MEDS: PIPER-TAZ 3.375 GM 50 ML IV SCH ×3 (00:09→12:14)
[2018-11-23 04:00] VITALS: BP 110/59
[2018-11-23 08:26] VITALS: BP 126/79
[2018-11-23] MEDS: PANTOPRAZOLE 40 MG 10ML VIAL IV SCH (09:00)
[2018-11-23 11:01] VITALS: BP 126/79
[2018-11-23 12:00] VITALS: BP 110/63
--- NOTE | 2018-11-23 12:00 | NUR ---
SITTING IN BS CHAIR, CALL LIGHT WITHIN REACH
--- NOTE | 2018-11-23 15:23 | NUR ---
MD SOW INTO SEE PT, DISCUSSED POC, REMOVED ERIC DRAIN, DRESSING APPLIED, PT TOLERATED WELL
[2018-11-23] MEDS ORDERED: CEFUROXIME500 MG PO (15:28)
[2018-11-23] MEDS ORDERED: TYLENOL # 31 EA PO (15:30)
--- NOTE | 2018-11-23 17:01 | NUR ---
PT WHEELED OFF UNIT VIA WC FOR DISCHARGE, NO CHANGE IN CONDITION
--- NOTE | 2018-11-23 18:02 | Discharge Summary ---
FINAL DISCHARGE DIAGNOSES 1. Status post laparoscopic cholecystectomy with removal of Levi-Nur drain. 2. Nausea, vomiting, dehydration, all resolved. 3. Abdominal distention, resolved. 4. Hypokalemia, resolved. 5. Shortness of breath, resolved. CONSULTANTS: General surgery. VITAL SIGNS: His temperature was 95.8, pulse 79, respiratory rate is 20, blood pressure 126/79, pulse ox 99% on room air. LAB FINDINGS: Show white count of 6.1, hemoglobin 11.5, hematocrit 35, platelets of 217. Chemistry: Sodium 133, potassium is 4.1, chloride is 100, bicarb is 28, anion gap of 9, BUN is 12, creatinine is 0.84. Urinalysis was negative. Blood cultures were negative greater than 72 hours. Urine cultures were negative as well. IMAGING STUDIES: CT abdomen and pelvis showed evidence of an acute cholecystitis. Abdominal x-ray showed small bowel loops concerning for ileus. MRCP shows cholelithiasis and acute cholecystitis with doubt choledocholithiasis. Chest x-ray shows mild patchy opacities likely atelectasis. HOSPITAL COURSE: This is a 58-year-old male, morbid obese, came in with abdominal pain, found to have acute cholecystitis on imaging studies. General surgery was consulted. Patient underwent a laparoscopic cholecystectomy and a ERIC drain while in the hospital. Patient's hospital course was prolonged due to the fact that he continues to have abdominal pain and he has significant drainage from the ERIC drain. Patient improves throughout the hospital course. ERIC drain was removed prior to being discharged and stable by the general surgery for discharge home. He was tolerating diet well with no complaints. He had no more abdominal pain. No more nausea or vomiting. He is afebrile. White count was normal. On the day of discharge, vital signs stable, labs remained stable. The patient was seen, evaluated and examined thoroughly on the day of discharge, no other complaints. Patient verbalized understanding and agrees with plan of care to follow up accordingly as an outpatient with the primary care physician in 1 week and general surgery in 1 week's time. MEDICATIONS: See med reconciliation form including Tylenol No. 3. DISPOSITION: Home. CONDITION: Stable. DIET: Heart-healthy. In the event of any worsening symptoms, patient was advised to come back to the ED for further evaluation. Discharge summary took greater than 35 minutes. Job#: [id number] LIU
== END 2018-11-23 16:30 | disposition home or self-care (01) | DRG 418 ==
LOC: ER 11:09 → ERHOLD 16:31 → MED/SURG 19:03
PROVIDERS: ADMIT Internal Medicine; ATTEND Internal Medicine
PROC: 0FT44ZZ Resection of Gallbladder, Percutaneous Endoscopic Approach (ICD-10-PCS; principal; 2018-11-19 10:00)
DX: K80.00 Calculus of gallbladder with acute cholecystitis without obstruction (principal); Z68.41 Body mass index [BMI] 40.0-44.9, adult; E86.0 Dehydration; E87.6 Hypokalemia; E66.01 Morbid (severe) obesity due to excess calories; R06.02 Shortness of breath
CPT/HCPCS: 36415; 71045; 74018; 74176; 74181; 80048; 80053; 80061; 80307; 81001; 82150; 82550; 82553; 82948; 83605; 83690; 83735; 84484; 85025; 87040; 87086; 87400; 88304; 93005; 99284; J1940; J2001; J2270; J2405; J2543; J3480; J7030

== ENCOUNTER 2022-10-09 19:04 | Inpatient (IN) | payer SELFPAY ==
[~2022-10-09] VITALS: Ht 175.3 cm; Wt 88.7 kg
[~2022-10-09 19:04] MED LIST: CEFUROXIME500 MG PO; TYLENOL # 31 EA PO
[2022-10-09] MEDS ORDERED: SODIUM CHLORIDE 0.9% 1000ML 1,000 ML IV ONE ×2 (19:30)
[2022-10-09] MEDS ORDERED: SODIUM CHLORIDE 0.9% 1000ML 2,000 ML ONE (19:42)
[2022-10-09] MEDS ORDERED: PIPERACILLIN/TAZOBACTAM 3.375 GM VIAL ONE (19:42)
[2022-10-09 19:54] LABS: BASOPHILS % 0.2 % (0.0-1.0); HEMATOCRIT 32.9 % (38.2-49.6); HEMOGLOBIN 11.3 g/dL (14.0-18.0); LYMPHOCYTES # (AUTO) 1.2 (1.0-3.2); LYMPHOCYTES % 10.6 % (18.0-39.1); MEAN CORPUSCULAR HEMOGLOBIN 29.2 pg (28-32); MEAN CORPUSCULAR HGB CONC 34.3 g/dL (31-35); MONOCYTES # (AUTO) 0.8 (0.2-0.8); MONOCYTES % 7.1 % (4.4-11.3); NEUTROPHILS # (AUTO) 9.5 (2.1-6.9); NEUTROPHILS % 81.6 % (38.7-80.0); PLATELET COUNT 252 x10e3/uL (140-360); RED BLOOD COUNT 3.87 x10e6/uL (4.3-5.7); RED CELL DISTRIBUTION WIDTH 13.2 % (11.7-14.4)
[2022-10-09 20:51] LABS: ALBUMIN 2.1 g/dL (3.5-5.0); ALBUMIN/GLOBULIN RATIO 0.8 (0.8-2.0); ALKALINE PHOSPHATASE 49 IU/L (40-150); ANION GAP 13.5 mmol/L (8-16); BLOOD UREA NITROGEN 18 mg/dL (7-26); BUN/CREATININE RATIO 28 (6-25); CARBON DIOXIDE 26 mmol/L (22-29); CHLORIDE 102 mmol/L (98-107); CREATININE, SERUM 0.65 mg/dL (0.72-1.25); GLUCOSE 93 mg/dL (74-118); SODIUM 140 mmol/L (136-145)
[2022-10-09 20:53] LABS: ALANINE AMINOTRANSFERASE < 6 IU/L (0-55); CALCIUM 6.8 mg/dL (8.4-10.2); POTASSIUM 1.5 mmol/L (3.5-5.1)
[2022-10-09] MEDS ORDERED: CALCIUM CHLORIDE 10% 1.36 MEQ/ML 10ML SYR IV STA (20:57)
[2022-10-09] MEDS ORDERED: LACTATED RINGER'S 1,000 ML INJ ONE (21:00)
[2022-10-09] MEDS ORDERED: POTASSIUM CHLORIDE 20MEQ/100ML 100 ML IV STA (21:00)
[2022-10-09 21:07] LABS: CREATINE KINASE MB 5.2 ng/mL (0-5.0)
[2022-10-09 21:08] LABS: MAGNESIUM 1.4 MG/DL (1.3-2.1); PHOSPHORUS 1.6 MG/DL (2.3-4.7)
[2022-10-09] MEDS ORDERED: IOPAMIDOL 370 MG/ML 100 ML INFUS..BTL INJ ONE (21:10)
[2022-10-09] MEDS ORDERED: GUAIFENESIN/DEXTROMETHORPHAN LIQD 5 ML UDC PO PRN (21:15)
[2022-10-09] MEDS: POTASSIUM CHLORIDE 20 MEQ TAB CR PO SCH (21:15)
[2022-10-09] MEDS ORDERED: THIAMINE HCL 100 MG TAB PO ONE (21:15)
[2022-10-09] MEDS ORDERED: MAGNESIUM/ALUMINUM/SIMETHICONE 30 ML UDC PO PRN (21:15)
[2022-10-09] MEDS ORDERED: HYDRALAZINE HCL 20 MG/ML VIAL IV PRN (21:15)
[2022-10-09] MEDS ORDERED: POTASSIUM PHOSPHATE 15 MM in SODIUM CHLORIDE 0.9% 250ML 250 ML IV ONE (21:15)
[2022-10-09] MEDS ORDERED: LACTATED RINGER'S 1,000 ML IV ONE (21:15)
[2022-10-09] MEDS ORDERED: ONDANSETRON HCL INJ 2MG/ML 2ML 2 MG/ML VIAL IV PRN (21:15)
[2022-10-09] MEDS ORDERED: ACETAMINOPHEN 325 MG TAB PO PRN (21:15)
[2022-10-09] MEDS ORDERED: LACTATED RINGER'S 1,000 ML ONE (21:16)
[2022-10-09] MEDS: MULTIVITAMINS/MINERALS TAB PO SCH (21:24)
[2022-10-09] MEDS ORDERED: DEXTROSE 50% SYRINGE 50 ML IV PRN (21:30)
[2022-10-09 21:53] LABS: FREE THYROXINE INDEX 1.9193 (1.4-3.8); THYROID STIMULATING HORMONE 0.33 uIU/mL (0.350-4.940)
[2022-10-09] MEDS: ONDANSETRON HCL INJ 2MG/ML 2ML 2 MG/ML VIAL IV PRN (22:30)
[2022-10-09] MEDS ORDERED: POTASSIUM CHLORIDE 20MEQ/100ML 100 ML IV ONE (23:00)
[2022-10-09] MEDS: KCL 20MEQ/.9 SOD CHL 1,000 ML IV SCH (23:38)
[2022-10-09 23:54] LABS: CLARITY,URINE SL CLOUDY (CLEAR); COLOR,URINE YELLOW (YELLOW); KETONES,URINE NEGATIVE (NEGATIVE); LEUKOCYTE ESTERASE ,URINE NEGATIVE (NEGATIVE); NITRITE,URINE NEGATIVE (NEGATIVE); PROTEIN,URINE DIPSTICK NEGATIVE (NEGATIVE); URINE UROBILINOGEN 0.2 mg/dL (0.2 - 1)
[2022-10-10] VITALS (23 sets, daily range): BP systolic 80–109; BP diastolic 50–84
[2022-10-10] LABS: BACTERIA,URINE FEW /HPF; EPITHELIAL CELLS,URINE MANY /LPF; RBC,URINE 0-5 /HPF (0-5); WBC,URINE (MAN) 0-5 /HPF (0-5)
[2022-10-10] MEDS: KCL 20MEQ/.9 SOD CHL 1,000 ML IV SCH ×2 (01:10→17:24)
[2022-10-10] MEDS: POTASSIUM CHLORIDE 20 MEQ TAB CR PO SCH (01:53)
[2022-10-10] MEDS ORDERED: THIAMINE HCL 100 MG TAB ONE (02:05)
[2022-10-10 06:59] LABS: MAGNESIUM 1.3 MG/DL (1.3-2.1); PHOSPHORUS 1.1 MG/DL (2.3-4.7)
[2022-10-10 07:29] LABS: BASOPHILS % 0.1 % (0.0-1.0); HEMOGLOBIN 7.7 g/dL (14.0-18.0); LYMPHOCYTES # (AUTO) 1.1 (1.0-3.2); LYMPHOCYTES % 10.6 % (18.0-39.1); MEAN CORPUSCULAR HEMOGLOBIN 29.3 pg (28-32); MEAN CORPUSCULAR HGB CONC 34.8 g/dL (31-35); MONOCYTES # (AUTO) 0.9 (0.2-0.8); MONOCYTES % 8.2 % (4.4-11.3); NEUTROPHILS # (AUTO) 8.3 (2.1-6.9); NEUTROPHILS % 80.5 % (38.7-80.0); PLATELET COUNT 220 x10e3/uL (140-360); RED BLOOD COUNT 2.63 x10e6/uL (4.3-5.7); RED CELL DISTRIBUTION WIDTH 13.2 % (11.7-14.4)
[2022-10-10] MEDS: INSULIN REGULAR, HUMAN 100 UNIT/1 ML SQ SCH ×4 (07:30→21:00)
[2022-10-10 07:45] LABS: HEMATOCRIT 22.1 % (38.2-49.6)
[2022-10-10 07:47] LABS: ALKALINE PHOSPHATASE 48 IU/L (40-150); ANION GAP 13.5 mmol/L (8-16); BLOOD UREA NITROGEN 13 mg/dL (7-26); BUN/CREATININE RATIO 22 (6-25); CALCIUM 7.9 mg/dL (8.4-10.2); CARBON DIOXIDE 22 mmol/L (22-29); CHLORIDE 110 mmol/L (98-107); CREATININE, SERUM 0.59 mg/dL (0.72-1.25); GLUCOSE 96 mg/dL (74-118); SODIUM 144 mmol/L (136-145)
[2022-10-10 07:53] LABS: ALANINE AMINOTRANSFERASE < 6 IU/L (0-55)
[2022-10-10 07:56] LABS: POTASSIUM 1.5 mmol/L (3.5-5.1)
[2022-10-10 08:02] LABS: ALBUMIN 2.2 g/dL (3.5-5.0); ALBUMIN/GLOBULIN RATIO 0.8 (0.8-2.0)
[2022-10-10] MEDS: MULTIVITAMINS/MINERALS TAB PO SCH (08:16)
[2022-10-10] MEDS: POTASSIUM CHLORIDE 20MEQ/100ML 100 ML IV SCH ×6 (08:16→20:49)
[2022-10-10] MEDS ORDERED: MAGNESIUM SULFATE 2GM/50ML 50 ML IV ONE ×2 (09:00→18:30)
[2022-10-10 12:04] LABS: ANION GAP 14.7 mmol/L (8-16); CALCIUM 7.9 mg/dL (8.4-10.2); CREATININE, SERUM 0.59 mg/dL (0.72-1.25); MAGNESIUM 1.7 MG/DL (1.3-2.1)
[2022-10-10 12:08] LABS: POTASSIUM 1.7 mmol/L (3.5-5.1)
[2022-10-10 13:00] LABS: PHOSPHORUS 1.1 MG/DL (2.3-4.7)
[2022-10-10 15:05] LABS: ALBUMIN 2.5 g/dL (3.5-5.0); ALBUMIN/GLOBULIN RATIO 1.1 (0.8-2.0); ALKALINE PHOSPHATASE 50 IU/L (40-150); ANION GAP 10.6 mmol/L (8-16); BLOOD UREA NITROGEN 12 mg/dL (7-26); BUN/CREATININE RATIO 21 (6-25); CALCIUM 7.3 mg/dL (8.4-10.2); CARBON DIOXIDE 23 mmol/L (22-29); CHLORIDE 108 mmol/L (98-107); CREATININE, SERUM 0.57 mg/dL (0.72-1.25); GLUCOSE 78 mg/dL (74-118); SODIUM 140 mmol/L (136-145)
[2022-10-10 15:06] LABS: ALANINE AMINOTRANSFERASE < 6 IU/L (0-55)
[2022-10-10 15:07] LABS: POTASSIUM 1.6 mmol/L (3.5-5.1)
[2022-10-10] MEDS ORDERED: POTASSIUM CHLORIDE 20 MEQ TAB CR PO ONE ×2 (15:30→18:45)
[2022-10-10] MEDS ORDERED: ENOXAPARIN SOD INJ 40 MG/0.4 ML SYR SC SCH (17:00)
[2022-10-10 18:16] LABS: MAGNESIUM 1.7 MG/DL (1.3-2.1)
[2022-10-10 18:17] LABS: POTASSIUM 1.8 mmol/L (3.5-5.1)
[2022-10-10] MEDS: LACTOBACILLUS ACIDOPHILUS CAPSULE PO SCH (20:48)
[2022-10-10] MEDS: LEVOFLOXACIN 500MG/D5W 100ML 100 ML IV SCH (20:48)
[2022-10-10 20:52] LABS: IRON 61 ug/dL (65-175); TRANSFERRIN < 70 mg/dL (174-364)
[2022-10-10] MEDS: METRONIDAZOLE 750MG/NS 150ML 150 ML IV SCH (21:46)
[2022-10-10] MEDS ORDERED: METRONIDAZOLE 500MG/NS 100ML 200 ML IV ONE (21:51)
[2022-10-11] VITALS (45 sets, daily range): BP systolic 67–101; BP diastolic 42–68
[2022-10-11] MEDS: POTASSIUM CHLORIDE 20MEQ/100ML 100 ML IV SCH ×4 (00:06→11:00)
[2022-10-11] MEDS: KCL 20MEQ/.9 SOD CHL 1,000 ML IV SCH ×3 (03:00→23:52)
[2022-10-11 05:06] LABS: BASOPHILS % 0.1 % (0.0-1.0); EOSINOPHILS % 0.1 % (0.0-6.0); LYMPHOCYTES % 13.3 % (18.0-39.1); MEAN CORPUSCULAR HEMOGLOBIN 28.6 pg (28-32); MEAN CORPUSCULAR HGB CONC 35.8 g/dL (31-35); MONOCYTES # (AUTO) 0.5 (0.2-0.8); MONOCYTES % 6.4 % (4.4-11.3); NEUTROPHILS # (AUTO) 6.1 (2.1-6.9); NEUTROPHILS % 79.7 % (38.7-80.0); PLATELET COUNT 155 x10e3/uL (140-360); RED BLOOD COUNT 2.24 x10e6/uL (4.3-5.7); RED CELL DISTRIBUTION WIDTH 13.8 % (11.7-14.4)
[2022-10-11 05:09] LABS: HEMATOCRIT 17.9 % (38.2-49.6); HEMOGLOBIN 6.4 g/dL (14.0-18.0); MEAN CORPUSCULAR VOLUME 79.9 fL (81-99)
[2022-10-11 05:29] LABS: ANION GAP 9.9 mmol/L (8-16); CREATININE, SERUM 0.56 mg/dL (0.72-1.25); POTASSIUM 2.9 mmol/L (3.5-5.1)
[2022-10-11 05:33] LABS: CALCIUM 6.7 mg/dL (8.4-10.2)
[2022-10-11] MEDS ORDERED: SODIUM CHLORIDE 0.9% 250ML 250 ML IV ONE ×2 (06:45→18:15)
[2022-10-11] MEDS: METRONIDAZOLE 750MG/NS 150ML 150 ML IV SCH ×3 (06:50→21:50)
[2022-10-11] MEDS: INSULIN REGULAR, HUMAN 100 UNIT/1 ML SQ SCH ×4 (07:30→22:04)
[2022-10-11] MEDS: DICYCLOMINE HCL 20 MG TAB PO SCH ×4 (08:06→21:50)
[2022-10-11] MEDS: MULTIVITAMINS/MINERALS TAB PO SCH (08:07)
[2022-10-11] MEDS: LACTOBACILLUS ACIDOPHILUS CAPSULE PO SCH ×3 (08:07→21:50)
[2022-10-11] MEDS ORDERED: CALCIUM CHLORIDE 13.6 MEQ in SODIUM CHLORIDE 0.9% 100 ML IV ONE (09:30)
[2022-10-11 09:31] LABS: HIV 1&2 AB SCREEN NON-REACTIVE (NONREACTIVE)
[2022-10-11] MEDS: MIDODRINE 2.5 MG TAB PO SCH ×2 (13:25→17:19)
[2022-10-11] MEDS ORDERED: SODIUM CHLORIDE 0.9% 250ML 250 ML ONE (14:42)
[2022-10-11 18:08] LABS: LYMPHOCYTES # (AUTO) 0.8 (1.0-3.2); LYMPHOCYTES % 13.6 % (18.0-39.1); MEAN CORPUSCULAR HEMOGLOBIN 28.5 pg (28-32); MEAN CORPUSCULAR HGB CONC 33.2 g/dL (31-35); MONOCYTES # (AUTO) 0.4 (0.2-0.8); MONOCYTES % 6.2 % (4.4-11.3); NEUTROPHILS # (AUTO) 4.8 (2.1-6.9); NEUTROPHILS % 79.4 % (38.7-80.0); PLATELET COUNT 135 x10e3/uL (140-360); RED BLOOD COUNT 2.35 x10e6/uL (4.3-5.7); RED CELL DISTRIBUTION WIDTH 13.7 % (11.7-14.4)
[2022-10-11 18:11] LABS: HEMATOCRIT 20.2 % (38.2-49.6); HEMOGLOBIN 6.7 g/dL (14.0-18.0)
[2022-10-11 18:24] LABS: ANION GAP 10.2 mmol/L (8-16); CREATININE, SERUM 0.55 mg/dL (0.72-1.25); POTASSIUM 3.2 mmol/L (3.5-5.1)
[2022-10-11 18:27] LABS: CALCIUM 6.9 mg/dL (8.4-10.2)
[2022-10-11] MEDS ORDERED: LACTATED RINGER'S 500 ML IV ONE (18:30)
[2022-10-11] MEDS: LEVOFLOXACIN 500MG/D5W 100ML 100 ML IV SCH (19:36)
[2022-10-12] VITALS (72 sets, daily range): BP systolic 65–117; BP diastolic 49–87
[2022-10-12] MEDS: VASOPRESSIN 60 UNIT in DEXTROSE 5% 50ML 57 ML IV PRN ×2 (01:26→14:15)
[2022-10-12] MEDS ORDERED: CHOLESTYRAMINE 4 GM PACKET PO ONE (02:30)
[2022-10-12 05:06] LABS: BASOPHILS % 0.2 % (0.0-1.0); EOSINOPHILS % 0.2 % (0.0-6.0); HEMATOCRIT 23.1 % (38.2-49.6); HEMOGLOBIN 7.8 g/dL (14.0-18.0); LYMPHOCYTES % 18.1 % (18.0-39.1); MEAN CORPUSCULAR HGB CONC 33.8 g/dL (31-35); MEAN CORPUSCULAR VOLUME 85.9 fL (81-99); MONOCYTES # (AUTO) 0.3 (0.2-0.8); NEUTROPHILS # (AUTO) 4.1 (2.1-6.9); NEUTROPHILS % 74.8 % (38.7-80.0); PLATELET COUNT 146 x10e3/uL (140-360); RED BLOOD COUNT 2.69 x10e6/uL (4.3-5.7)
[2022-10-12 05:26] LABS: ALBUMIN 2.1 g/dL (3.5-5.0); ALBUMIN/GLOBULIN RATIO 1.1 (0.8-2.0); ALKALINE PHOSPHATASE 40 IU/L (40-150); ANION GAP 9.3 mmol/L (8-16); BLOOD UREA NITROGEN 6 mg/dL (7-26); BUN/CREATININE RATIO 11 (6-25); CARBON DIOXIDE 21 mmol/L (22-29); CHLORIDE 110 mmol/L (98-107); CREATININE, SERUM 0.54 mg/dL (0.72-1.25); GLUCOSE 120 mg/dL (74-118); POTASSIUM 3.3 mmol/L (3.5-5.1); SODIUM 137 mmol/L (136-145)
[2022-10-12 05:29] LABS: ALANINE AMINOTRANSFERASE < 6 IU/L (0-55)
[2022-10-12] MEDS: METRONIDAZOLE 750MG/NS 150ML 150 ML IV SCH ×3 (05:42→22:09)
[2022-10-12] MEDS: NOREPINEPHRINE 8 MG/D5W 250 ML 250 ML IV SCH (06:00)
[2022-10-12] MEDS ORDERED: NOREPINEPHRINE 8 MG/D5W 250 ML 250 ML ONE (06:04)
[2022-10-12] MEDS: INSULIN REGULAR, HUMAN 100 UNIT/1 ML SQ SCH ×4 (07:30→21:01)
[2022-10-12] MEDS: LACTOBACILLUS ACIDOPHILUS CAPSULE PO SCH ×3 (10:45→20:39)
[2022-10-12] MEDS: CHOLESTYRAMINE 4 GM PACKET PO SCH (10:45)
[2022-10-12] MEDS: MULTIVITAMINS/MINERALS TAB PO SCH (10:45)
[2022-10-12] MEDS: KCL 20MEQ/.9 SOD CHL 1,000 ML IV SCH ×2 (10:46→18:01)
[2022-10-12] MEDS: POTASSIUM CHLORIDE 20MEQ/100ML 100 ML IV SCH ×2 (10:46→13:50)
[2022-10-12] MEDS: DICYCLOMINE HCL 20 MG TAB PO SCH ×4 (10:46→20:39)
[2022-10-12] MEDS: MIDODRINE 2.5 MG TAB PO SCH ×3 (10:46→17:14)
[2022-10-12] MEDS ORDERED: POTASSIUM CHLORIDE 20MEQ/100ML 100 ML IV SCH (14:00)
[2022-10-12] MEDS: LEVOFLOXACIN 500MG/D5W 100ML 100 ML IV SCH (20:40)
[2022-10-12] MEDS: ONDANSETRON HCL INJ 2MG/ML 2ML 2 MG/ML VIAL IV PRN (20:52)
[2022-10-13] VITALS (87 sets, daily range): BP systolic 92–121; BP diastolic 65–87
[2022-10-13] MEDS ORDERED: DIPHENOXYLATE/ATROPINE TAB PO STA (03:08)
[2022-10-13] MEDS: VASOPRESSIN 60 UNIT in DEXTROSE 5% 50ML 57 ML IV PRN (04:36)
[2022-10-13] MEDS: KCL 20MEQ/.9 SOD CHL 1,000 ML IV SCH ×2 (05:00→16:25)
[2022-10-13 05:01] LABS: BASOPHILS % 0.1 % (0.0-1.0); EOSINOPHILS % 0.2 % (0.0-6.0); HEMATOCRIT 26.2 % (38.2-49.6); HEMOGLOBIN 8.9 g/dL (14.0-18.0); LYMPHOCYTES # (AUTO) 1.5 (1.0-3.2); LYMPHOCYTES % 13.4 % (18.0-39.1); MEAN CORPUSCULAR HEMOGLOBIN 29.2 pg (28-32); MEAN CORPUSCULAR VOLUME 85.9 fL (81-99); MONOCYTES # (AUTO) 0.7 (0.2-0.8); MONOCYTES % 6.1 % (4.4-11.3); NEUTROPHILS # (AUTO) 8.7 (2.1-6.9); PLATELET COUNT 245 x10e3/uL (140-360); RED BLOOD COUNT 3.05 x10e6/uL (4.3-5.7); RED CELL DISTRIBUTION WIDTH 14.3 % (11.7-14.4)
[2022-10-13] MEDS: METRONIDAZOLE 750MG/NS 150ML 150 ML IV SCH ×3 (05:40→21:54)
[2022-10-13 05:45] LABS: ALBUMIN 2.4 g/dL (3.5-5.0); ALKALINE PHOSPHATASE 51 IU/L (40-150); ANION GAP 10.2 mmol/L (8-16); BILIRUBIN,DIRECT 0.5 mg/dL (0.0-0.5); BLOOD UREA NITROGEN < 5 mg/dL (7-26); CARBON DIOXIDE 20 mmol/L (22-29); CHLORIDE 111 mmol/L (98-107); CREATININE, SERUM 0.53 mg/dL (0.72-1.25); GLUCOSE 141 mg/dL (74-118); MAGNESIUM 1.5 MG/DL (1.3-2.1); POTASSIUM 3.2 mmol/L (3.5-5.1); SODIUM 138 mmol/L (136-145)
[2022-10-13 05:46] LABS: ALANINE AMINOTRANSFERASE < 6 IU/L (0-55); BUN/CREATININE RATIO 9 (6-25)
[2022-10-13] MEDS: NOREPINEPHRINE 8 MG/D5W 250 ML 250 ML IV SCH (05:55)
[2022-10-13] MEDS: INSULIN REGULAR, HUMAN 100 UNIT/1 ML SQ SCH (07:35)
[2022-10-13] MEDS: MULTIVITAMINS/MINERALS TAB PO SCH (08:05)
[2022-10-13] MEDS: MIDODRINE 2.5 MG TAB PO SCH (08:05)
[2022-10-13] MEDS: DICYCLOMINE HCL 20 MG TAB PO SCH ×4 (08:06→20:49)
[2022-10-13] MEDS: DIPHENOXYLATE/ATROPINE TAB PO SCH ×2 (08:06→16:21)
[2022-10-13] MEDS: CHOLESTYRAMINE 4 GM PACKET PO SCH (08:06)
[2022-10-13] MEDS: LACTOBACILLUS ACIDOPHILUS CAPSULE PO SCH ×3 (08:06→20:49)
[2022-10-13] MEDS: POTASSIUM CHLORIDE 20MEQ/100ML 100 ML IV SCH ×2 (09:34→11:07)
[2022-10-13] MEDS ORDERED: MAGNESIUM SULFATE 2GM/50ML 50 ML IV ONE (10:15)
[2022-10-13] MEDS: MIDODRINE HCL 5 MG TABLET PO SCH ×2 (11:08→16:21)
[2022-10-13] MEDS: INSULIN LISPRO 100 UNIT/1 ML 3ML VIAL SQ SCH ×3 (11:08→20:48)
[2022-10-13] MEDS: LEVOFLOXACIN 500MG/D5W 100ML 100 ML IV SCH (20:12)
[2022-10-14] VITALS (96 sets, daily range): BP systolic 73–122; BP diastolic 41–111
[2022-10-14] MEDS: KCL 20MEQ/.9 SOD CHL 1,000 ML IV SCH ×3 (01:27→23:21)
[2022-10-14] MEDS: METRONIDAZOLE 750MG/NS 150ML 150 ML IV SCH ×3 (05:47→21:58)
[2022-10-14] MEDS: NOREPINEPHRINE 8 MG/D5W 250 ML 250 ML IV SCH (05:48)
[2022-10-14 06:37] LABS: BASOPHILS % 0.3 % (0.0-1.0); EOSINOPHILS % 0.4 % (0.0-6.0); HEMATOCRIT 26.7 % (38.2-49.6); HEMOGLOBIN 8.8 g/dL (14.0-18.0); LYMPHOCYTES # (AUTO) 1.2 (1.0-3.2); LYMPHOCYTES % 16.4 % (18.0-39.1); MEAN CORPUSCULAR HEMOGLOBIN 28.8 pg (28-32); MEAN CORPUSCULAR VOLUME 87.3 fL (81-99); MONOCYTES # (AUTO) 0.4 (0.2-0.8); MONOCYTES % 6.2 % (4.4-11.3); NEUTROPHILS # (AUTO) 5.4 (2.1-6.9); NEUTROPHILS % 75.3 % (38.7-80.0); PLATELET COUNT 216 x10e3/uL (140-360); RED BLOOD COUNT 3.06 x10e6/uL (4.3-5.7); RED CELL DISTRIBUTION WIDTH 14.5 % (11.7-14.4)
[2022-10-14] MEDS: INSULIN LISPRO 100 UNIT/1 ML 3ML VIAL SQ SCH ×4 (07:30→21:00)
[2022-10-14 07:33] LABS: ALBUMIN 2.2 g/dL (3.5-5.0); ALKALINE PHOSPHATASE 45 IU/L (40-150); ANION GAP 10.4 mmol/L (8-16); BLOOD UREA NITROGEN < 5 mg/dL (7-26); CALCIUM 7.2 mg/dL (8.4-10.2); CARBON DIOXIDE 22 mmol/L (22-29); CHLORIDE 111 mmol/L (98-107); CREATININE, SERUM 0.47 mg/dL (0.72-1.25); GLUCOSE 100 mg/dL (74-118); POTASSIUM 3.4 mmol/L (3.5-5.1); SODIUM 140 mmol/L (136-145)
[2022-10-14 07:43] LABS: BUN/CREATININE RATIO 11 (6-25)
[2022-10-14 07:44] LABS: ALANINE AMINOTRANSFERASE < 6 IU/L (0-55)
[2022-10-14] MEDS: CHOLESTYRAMINE 4 GM PACKET PO SCH (08:19)
[2022-10-14] MEDS: DICYCLOMINE HCL 20 MG TAB PO SCH ×4 (10:10→20:21)
[2022-10-14] MEDS: MIDODRINE HCL 5 MG TABLET PO SCH ×3 (10:10→16:55)
[2022-10-14] MEDS: MULTIVITAMINS/MINERALS TAB PO SCH (10:10)
[2022-10-14] MEDS: LACTOBACILLUS ACIDOPHILUS CAPSULE PO SCH ×3 (10:10→20:21)
[2022-10-14] MEDS: DIPHENOXYLATE/ATROPINE TAB PO SCH ×2 (10:10→16:55)
[2022-10-14] MEDS ORDERED: BALSAM PERU/CASTOR OIL 60 GM OINT...G. TP PRN (10:15)
[2022-10-14] MEDS: POTASSIUM CHLORIDE 20MEQ/100ML 100 ML IV SCH ×2 (12:28→15:41)
[2022-10-14] MEDS: LEVOFLOXACIN 500MG/D5W 100ML 100 ML IV SCH (20:21)
[2022-10-15] VITALS (89 sets, daily range): BP systolic 77–121; BP diastolic 54–86
[2022-10-15] MEDS: METRONIDAZOLE 750MG/NS 150ML 150 ML IV SCH ×3 (05:24→21:56)
[2022-10-15 07:04] LABS: BASOPHILS % 0.3 % (0.0-1.0); EOSINOPHILS % 0.2 % (0.0-6.0); HEMATOCRIT 27.3 % (38.2-49.6); HEMOGLOBIN 8.8 g/dL (14.0-18.0); LYMPHOCYTES # (AUTO) 0.9 (1.0-3.2); LYMPHOCYTES % 14.9 % (18.0-39.1); MEAN CORPUSCULAR HEMOGLOBIN 28.7 pg (28-32); MEAN CORPUSCULAR HGB CONC 32.2 g/dL (31-35); MEAN CORPUSCULAR VOLUME 88.9 fL (81-99); MONOCYTES # (AUTO) 0.5 (0.2-0.8); MONOCYTES % 7.7 % (4.4-11.3); NEUTROPHILS # (AUTO) 4.5 (2.1-6.9); NEUTROPHILS % 75.7 % (38.7-80.0); PLATELET COUNT 183 x10e3/uL (140-360); RED BLOOD COUNT 3.07 x10e6/uL (4.3-5.7)
[2022-10-15] MEDS: INSULIN LISPRO 100 UNIT/1 ML 3ML VIAL SQ SCH ×4 (07:30→21:00)
[2022-10-15 07:39] LABS: ALBUMIN/GLOBULIN RATIO 1.2 (0.8-2.0); ALKALINE PHOSPHATASE 44 IU/L (40-150); ANION GAP 8.2 mmol/L (8-16); BLOOD UREA NITROGEN < 5 mg/dL (7-26); CALCIUM 7.1 mg/dL (8.4-10.2); CARBON DIOXIDE 24 mmol/L (22-29); CHLORIDE 116 mmol/L (98-107); CREATININE, SERUM 0.55 mg/dL (0.72-1.25); GLUCOSE 76 mg/dL (74-118); POTASSIUM 4.2 mmol/L (3.5-5.1); SODIUM 144 mmol/L (136-145)
[2022-10-15 07:53] LABS: ALANINE AMINOTRANSFERASE < 6 IU/L (0-55); BUN/CREATININE RATIO 9 (6-25)
[2022-10-15] MEDS: DIPHENOXYLATE/ATROPINE TAB PO SCH ×2 (08:14→16:18)
[2022-10-15] MEDS: MIDODRINE HCL 5 MG TABLET PO SCH ×3 (08:14→16:19)
[2022-10-15] MEDS: LACTOBACILLUS ACIDOPHILUS CAPSULE PO SCH ×3 (08:14→19:22)
[2022-10-15] MEDS: MULTIVITAMINS/MINERALS TAB PO SCH (08:15)
[2022-10-15] MEDS: DICYCLOMINE HCL 20 MG TAB PO SCH ×4 (08:15→19:22)
[2022-10-15] MEDS: CHOLESTYRAMINE 4 GM PACKET PO SCH (08:15)
[2022-10-15] MEDS: KCL 20MEQ/.9 SOD CHL 1,000 ML IV SCH ×2 (08:56→19:22)
[2022-10-15] MEDS: NOREPINEPHRINE 8 MG/D5W 250 ML 250 ML IV SCH (11:54)
[2022-10-15] MEDS: LEVOFLOXACIN 500MG/D5W 100ML 100 ML IV SCH (19:21)
[2022-10-16] VITALS (73 sets, daily range): BP systolic 78–117; BP diastolic 58–97
[2022-10-16] MEDS: KCL 20MEQ/.9 SOD CHL 1,000 ML IV SCH ×2 (02:08→17:04)
[2022-10-16] MEDS: METRONIDAZOLE 750MG/NS 150ML 150 ML IV SCH ×3 (05:35→20:30)
[2022-10-16] MEDS: INSULIN LISPRO 100 UNIT/1 ML 3ML VIAL SQ SCH ×4 (07:30→20:36)
[2022-10-16] MEDS: LACTOBACILLUS ACIDOPHILUS CAPSULE PO SCH ×3 (08:11→20:30)
[2022-10-16] MEDS: DICYCLOMINE HCL 20 MG TAB PO SCH ×4 (08:11→20:30)
[2022-10-16] MEDS: MIDODRINE HCL 5 MG TABLET PO SCH ×3 (08:11→15:00)
[2022-10-16] MEDS: DIPHENOXYLATE/ATROPINE TAB PO SCH ×2 (08:12→17:03)
[2022-10-16] MEDS: MULTIVITAMINS/MINERALS TAB PO SCH (08:12)
[2022-10-16] MEDS: CHOLESTYRAMINE 4 GM PACKET PO SCH (08:12)
[2022-10-16 08:54] LABS: BASOPHILS % 0.3 % (0.0-1.0); EOSINOPHILS % 0.1 % (0.0-6.0); HEMATOCRIT 32.7 % (38.2-49.6); HEMOGLOBIN 10.2 g/dL (14.0-18.0); LYMPHOCYTES # (AUTO) 1.2 (1.0-3.2); LYMPHOCYTES % 17.3 % (18.0-39.1); MEAN CORPUSCULAR HEMOGLOBIN 28.7 pg (28-32); MEAN CORPUSCULAR HGB CONC 31.2 g/dL (31-35); MEAN CORPUSCULAR VOLUME 92.1 fL (81-99); MONOCYTES # (AUTO) 0.6 (0.2-0.8); NEUTROPHILS # (AUTO) 4.9 (2.1-6.9); NEUTROPHILS % 72.1 % (38.7-80.0); PLATELET COUNT 198 x10e3/uL (140-360); RED BLOOD COUNT 3.55 x10e6/uL (4.3-5.7); RED CELL DISTRIBUTION WIDTH 15.9 % (11.7-14.4)
[2022-10-16 09:13] LABS: ALBUMIN 2.2 g/dL (3.5-5.0); ALBUMIN/GLOBULIN RATIO 0.9 (0.8-2.0); ALKALINE PHOSPHATASE 48 IU/L (40-150); BLOOD UREA NITROGEN < 5 mg/dL (7-26); CALCIUM 7.3 mg/dL (8.4-10.2); CARBON DIOXIDE 24 mmol/L (22-29); CHLORIDE 111 mmol/L (98-107); CREATININE, SERUM 0.55 mg/dL (0.72-1.25); GLUCOSE 138 mg/dL (74-118); SODIUM 141 mmol/L (136-145)
[2022-10-16 09:18] LABS: ALANINE AMINOTRANSFERASE < 6 IU/L (0-55); BUN/CREATININE RATIO 9 (6-25)
[2022-10-16] MEDS ORDERED: ALBUMIN 25% 25GM 100ML 0.25 GM/ML BTL IV ONE (11:00)
[2022-10-16] MEDS: LEVOFLOXACIN 500MG/D5W 100ML 100 ML IV SCH (20:30)
[2022-10-16] MEDS: MELATONIN 3 MG TAB PO PRN (20:30)
[2022-10-16] MEDS: NOREPINEPHRINE 8 MG/D5W 250 ML 250 ML IV SCH (23:09)
[2022-10-17] VITALS (77 sets, daily range): BP systolic 77–119; BP diastolic 53–97
[2022-10-17] MEDS: KCL 20MEQ/.9 SOD CHL 1,000 ML IV SCH ×3 (01:55→20:14)
[2022-10-17] MEDS: METRONIDAZOLE 750MG/NS 150ML 150 ML IV SCH ×3 (05:09→21:27)
[2022-10-17] MEDS: INSULIN LISPRO 100 UNIT/1 ML 3ML VIAL SQ SCH ×4 (07:30→20:23)
[2022-10-17 07:52] LABS: BASOPHILS % 0.2 % (0.0-1.0); EOSINOPHILS % 0.4 % (0.0-6.0); HEMATOCRIT 29.5 % (38.2-49.6); HEMOGLOBIN 9.2 g/dL (14.0-18.0); LYMPHOCYTES % 20.4 % (18.0-39.1); MEAN CORPUSCULAR HEMOGLOBIN 28.8 pg (28-32); MEAN CORPUSCULAR HGB CONC 31.2 g/dL (31-35); MEAN CORPUSCULAR VOLUME 92.2 fL (81-99); MONOCYTES # (AUTO) 0.5 (0.2-0.8); MONOCYTES % 10.2 % (4.4-11.3); NEUTROPHILS # (AUTO) 3.5 (2.1-6.9); NEUTROPHILS % 67.8 % (38.7-80.0); PLATELET COUNT 137 x10e3/uL (140-360)
[2022-10-17 08:11] LABS: ALANINE AMINOTRANSFERASE 6 IU/L (0-55); ALBUMIN 2.2 g/dL (3.5-5.0); ALKALINE PHOSPHATASE 41 IU/L (40-150); ANION GAP 9.4 mmol/L (8-16); BLOOD UREA NITROGEN < 5 mg/dL (7-26); CALCIUM 7.6 mg/dL (8.4-10.2); CARBON DIOXIDE 24 mmol/L (22-29); CHLORIDE 113 mmol/L (98-107); CREATININE, SERUM 0.48 mg/dL (0.72-1.25); GLUCOSE 119 mg/dL (74-118); POTASSIUM 3.4 mmol/L (3.5-5.1); SODIUM 143 mmol/L (136-145)
[2022-10-17 08:16] LABS: BUN/CREATININE RATIO 10 (6-25)
[2022-10-17] MEDS: CHOLESTYRAMINE 4 GM PACKET PO SCH (08:52)
[2022-10-17] MEDS: MIDODRINE HCL 5 MG TABLET PO SCH ×3 (08:52→16:49)
[2022-10-17] MEDS: DICYCLOMINE HCL 20 MG TAB PO SCH ×4 (08:52→20:11)
[2022-10-17] MEDS: DIPHENOXYLATE/ATROPINE TAB PO SCH ×2 (08:52→16:49)
[2022-10-17] MEDS: LACTOBACILLUS ACIDOPHILUS CAPSULE PO SCH ×3 (08:52→20:11)
[2022-10-17] MEDS: MULTIVITAMINS/MINERALS TAB PO SCH (08:53)
[2022-10-17] MEDS ORDERED: FUROSEMIDE INJ 10 MG/ML 2 ML VIAL IV ONE (11:30)
[2022-10-17] MEDS ORDERED: POTASSIUM CHLORIDE 20MEQ/100ML 200 ML IV ONE (11:30)
[2022-10-17] MEDS: LEVOFLOXACIN 500MG/D5W 100ML 100 ML IV SCH (20:11)
[2022-10-17] MEDS: MELATONIN 3 MG TAB PO PRN (20:12)
[2022-10-18] VITALS (18 sets, daily range): BP systolic 82–126; BP diastolic 56–76
[2022-10-18] MEDS: METRONIDAZOLE 750MG/NS 150ML 150 ML IV SCH ×3 (05:27→20:23)
[2022-10-18] MEDS: ONDANSETRON HCL INJ 2MG/ML 2ML 2 MG/ML VIAL IV PRN (05:55)
[2022-10-18] MEDS: NOREPINEPHRINE 8 MG/D5W 250 ML 250 ML IV SCH ×2 (06:00→08:35)
[2022-10-18 06:06] LABS: BASOPHILS % 0.2 % (0.0-1.0); EOSINOPHILS % 0.3 % (0.0-6.0); HEMATOCRIT 28.9 % (38.2-49.6); HEMOGLOBIN 8.9 g/dL (14.0-18.0); LYMPHOCYTES % 15.5 % (18.0-39.1); MEAN CORPUSCULAR HEMOGLOBIN 28.7 pg (28-32); MEAN CORPUSCULAR HGB CONC 30.8 g/dL (31-35); MEAN CORPUSCULAR VOLUME 93.2 fL (81-99); MONOCYTES # (AUTO) 0.6 (0.2-0.8); MONOCYTES % 8.7 % (4.4-11.3); NEUTROPHILS % 74.8 % (38.7-80.0); PLATELET COUNT 148 x10e3/uL (140-360); RED CELL DISTRIBUTION WIDTH 16.6 % (11.7-14.4)
[2022-10-18 06:36] LABS: ALBUMIN 2.1 g/dL (3.5-5.0); ALBUMIN/GLOBULIN RATIO 1.1 (0.8-2.0); ALKALINE PHOSPHATASE 40 IU/L (40-150); ANION GAP 8.6 mmol/L (8-16); BLOOD UREA NITROGEN < 5 mg/dL (7-26); CALCIUM 7.5 mg/dL (8.4-10.2); CARBON DIOXIDE 26 mmol/L (22-29); CHLORIDE 111 mmol/L (98-107); CREATININE, SERUM 0.48 mg/dL (0.72-1.25); GLUCOSE 103 mg/dL (74-118); POTASSIUM 3.6 mmol/L (3.5-5.1); SODIUM 142 mmol/L (136-145)
[2022-10-18 06:37] LABS: ALANINE AMINOTRANSFERASE < 6 IU/L (0-55); BUN/CREATININE RATIO 10 (6-25)
[2022-10-18] MEDS: INSULIN LISPRO 100 UNIT/1 ML 3ML VIAL SQ SCH ×4 (07:30→21:00)
[2022-10-18] MEDS: MULTIVITAMINS/MINERALS TAB PO SCH (08:30)
[2022-10-18] MEDS: DIPHENOXYLATE/ATROPINE TAB PO SCH ×2 (08:30→18:16)
[2022-10-18] MEDS: MIDODRINE HCL 5 MG TABLET PO SCH ×3 (08:30→18:16)
[2022-10-18] MEDS: LACTOBACILLUS ACIDOPHILUS CAPSULE PO SCH ×3 (08:30→20:23)
[2022-10-18] MEDS: CHOLESTYRAMINE 4 GM PACKET PO SCH (08:31)
[2022-10-18] MEDS: DICYCLOMINE HCL 20 MG TAB PO SCH ×4 (08:32→20:23)
[2022-10-18] MEDS ORDERED: NYSTATIN 15 GM POWDER UD BTL TOP PRN (10:30)
[2022-10-18] MEDS: KCL 20MEQ/.9 SOD CHL 1,000 ML IV SCH (20:23)
[2022-10-18] MEDS: MELATONIN 3 MG TAB PO PRN (20:23)
[2022-10-18] MEDS: LEVOFLOXACIN 500MG/D5W 100ML 100 ML IV SCH (20:23)
[2022-10-19] VITALS (70 sets, daily range): BP systolic 68–110; BP diastolic 50–70
[2022-10-19] MEDS: KCL 20MEQ/.9 SOD CHL 1,000 ML IV SCH ×4 (01:00→20:17)
[2022-10-19] MEDS: METRONIDAZOLE 750MG/NS 150ML 150 ML IV SCH ×3 (05:19→22:01)
[2022-10-19] MEDS: NOREPINEPHRINE 8 MG/D5W 250 ML 250 ML IV SCH ×2 (06:00→14:45)
[2022-10-19] MEDS: INSULIN LISPRO 100 UNIT/1 ML 3ML VIAL SQ SCH ×4 (07:19→20:38)
[2022-10-19] MEDS: MIDODRINE HCL 5 MG TABLET PO SCH ×3 (08:02→16:47)
[2022-10-19] MEDS: DICYCLOMINE HCL 20 MG TAB PO SCH ×4 (08:02→20:38)
[2022-10-19] MEDS: MULTIVITAMINS/MINERALS TAB PO SCH (08:02)
[2022-10-19] MEDS: CHOLESTYRAMINE 4 GM PACKET PO SCH (08:02)
[2022-10-19] MEDS: DIPHENOXYLATE/ATROPINE TAB PO SCH ×2 (08:02→16:47)
[2022-10-19] MEDS: LACTOBACILLUS ACIDOPHILUS CAPSULE PO SCH ×3 (08:02→20:38)
[2022-10-19] MEDS: LEVOFLOXACIN 500MG/D5W 100ML 100 ML IV SCH (20:17)
[2022-10-20] VITALS (92 sets, daily range): BP systolic 70–112; BP diastolic 47–80
[2022-10-20] MEDS ORDERED: CHOLESTYRAMINE 4 GM PACKET PO PRN (00:15)
[2022-10-20 05:12] LABS: BASOPHILS % 0.2 % (0.0-1.0); EOSINOPHILS % 0.7 % (0.0-6.0); HEMATOCRIT 24.9 % (38.2-49.6); HEMOGLOBIN 8.1 g/dL (14.0-18.0); MEAN CORPUSCULAR HEMOGLOBIN 28.9 pg (28-32); MEAN CORPUSCULAR HGB CONC 32.5 g/dL (31-35); MEAN CORPUSCULAR VOLUME 88.9 fL (81-99); MONOCYTES # (AUTO) 0.4 (0.2-0.8); MONOCYTES % 8.3 % (4.4-11.3); NEUTROPHILS # (AUTO) 2.9 (2.1-6.9); NEUTROPHILS % 67.3 % (38.7-80.0); PLATELET COUNT 103 x10e3/uL (140-360)
[2022-10-20 05:32] LABS: BLOOD UREA NITROGEN < 5 mg/dL (7-26); CALCIUM 7.4 mg/dL (8.4-10.2); CARBON DIOXIDE 28 mmol/L (22-29); CHLORIDE 113 mmol/L (98-107); CREATININE, SERUM 0.48 mg/dL (0.72-1.25); GLUCOSE 77 mg/dL (74-118); POTASSIUM 3.5 mmol/L (3.5-5.1); SODIUM 143 mmol/L (136-145)
[2022-10-20 05:37] LABS: ANION GAP 5.5 mmol/L (8-16); BUN/CREATININE RATIO 10 (6-25)
[2022-10-20] MEDS: METRONIDAZOLE 750MG/NS 150ML 150 ML IV SCH ×2 (06:05→13:17)
[2022-10-20] MEDS: KCL 20MEQ/.9 SOD CHL 1,000 ML IV SCH ×2 (06:24→16:53)
[2022-10-20] MEDS: INSULIN LISPRO 100 UNIT/1 ML 3ML VIAL SQ SCH ×4 (07:13→21:00)
[2022-10-20] MEDS: DIPHENOXYLATE/ATROPINE TAB PO SCH ×2 (08:40→16:53)
[2022-10-20] MEDS: MULTIVITAMINS/MINERALS TAB PO SCH (08:40)
[2022-10-20] MEDS: MIDODRINE HCL 5 MG TABLET PO SCH ×3 (08:40→15:55)
[2022-10-20] MEDS: LACTOBACILLUS ACIDOPHILUS CAPSULE PO SCH ×3 (08:40→19:45)
[2022-10-20] MEDS: HYDROCORTISONE SOD SUCCINATE 100 MG VIAL IV SCH ×2 (15:54→19:45)
[2022-10-20] MEDS: LEVOFLOXACIN 500MG/D5W 100ML 100 ML IV SCH (19:46)
[2022-10-21] VITALS (43 sets, daily range): BP systolic 75–110; BP diastolic 47–78
[2022-10-21] MEDS: KCL 20MEQ/.9 SOD CHL 1,000 ML IV SCH ×3 (03:00→23:35)
[2022-10-21] MEDS: NOREPINEPHRINE 8 MG/D5W 250 ML 250 ML IV SCH (05:43)
[2022-10-21] MEDS: HYDROCORTISONE SOD SUCCINATE 100 MG VIAL IV SCH ×3 (05:43→22:38)
[2022-10-21 06:39] LABS: BASOPHILS % 0.2 % (0.0-1.0); EOSINOPHILS % 0.2 % (0.0-6.0); HEMATOCRIT 26.1 % (38.2-49.6); LYMPHOCYTES % 21.3 % (18.0-39.1); MEAN CORPUSCULAR HEMOGLOBIN 28.7 pg (28-32); MEAN CORPUSCULAR HGB CONC 30.7 g/dL (31-35); MEAN CORPUSCULAR VOLUME 93.5 fL (81-99); MONOCYTES # (AUTO) 0.3 (0.2-0.8); MONOCYTES % 7.2 % (4.4-11.3); NEUTROPHILS # (AUTO) 3.2 (2.1-6.9); NEUTROPHILS % 70.7 % (38.7-80.0); PLATELET COUNT 130 x10e3/uL (140-360); RED BLOOD COUNT 2.79 x10e6/uL (4.3-5.7); RED CELL DISTRIBUTION WIDTH 16.8 % (11.7-14.4)
[2022-10-21 07:05] LABS: ANION GAP 6.8 mmol/L (8-16); BLOOD UREA NITROGEN < 5 mg/dL (7-26); CARBON DIOXIDE 25 mmol/L (22-29); CHLORIDE 116 mmol/L (98-107); CREATININE, SERUM 0.43 mg/dL (0.72-1.25); GLUCOSE 81 mg/dL (74-118); POTASSIUM 4.8 mmol/L (3.5-5.1); SODIUM 143 mmol/L (136-145)
[2022-10-21 07:08] LABS: BUN/CREATININE RATIO 12 (6-25)
[2022-10-21 07:11] LABS: CALCIUM 6.6 mg/dL (8.4-10.2)
[2022-10-21] MEDS: INSULIN LISPRO 100 UNIT/1 ML 3ML VIAL SQ SCH ×4 (07:26→21:00)
[2022-10-21] MEDS: DIPHENOXYLATE/ATROPINE TAB PO SCH (08:24)
[2022-10-21] MEDS: MULTIVITAMINS/MINERALS TAB PO SCH (08:24)
[2022-10-21] MEDS: MIDODRINE HCL 5 MG TABLET PO SCH ×3 (08:24→16:40)
[2022-10-21] MEDS: LACTOBACILLUS ACIDOPHILUS CAPSULE PO SCH ×3 (08:25→21:16)
[2022-10-21] MEDS ORDERED: CALCIUM GLUC 1 G/50 ML NACL 50 ML IV ONE (09:00)
[2022-10-21] MEDS ORDERED: FUROSEMIDE INJ 10 MG/ML 4 ML VIAL IV ONE (17:45)
[2022-10-22] VITALS (35 sets, daily range): BP systolic 89–117; BP diastolic 59–78
[2022-10-22] MEDS: HYDROCORTISONE SOD SUCCINATE 100 MG VIAL IV SCH ×3 (05:54→21:08)
[2022-10-22 07:09] LABS: BASOPHILS % 0.2 % (0.0-1.0); HEMATOCRIT 26.8 % (38.2-49.6); HEMOGLOBIN 8.6 g/dL (14.0-18.0); LYMPHOCYTES % 20.7 % (18.0-39.1); MEAN CORPUSCULAR HEMOGLOBIN 28.9 pg (28-32); MEAN CORPUSCULAR HGB CONC 32.1 g/dL (31-35); MEAN CORPUSCULAR VOLUME 89.9 fL (81-99); MONOCYTES # (AUTO) 0.3 (0.2-0.8); MONOCYTES % 7.4 % (4.4-11.3); NEUTROPHILS # (AUTO) 3.3 (2.1-6.9); PLATELET COUNT 171 x10e3/uL (140-360); RED BLOOD COUNT 2.98 x10e6/uL (4.3-5.7); RED CELL DISTRIBUTION WIDTH 17.7 % (11.7-14.4)
[2022-10-22] MEDS: INSULIN LISPRO 100 UNIT/1 ML 3ML VIAL SQ SCH ×4 (07:30→21:00)
[2022-10-22 07:34] LABS: ALBUMIN 1.6 g/dL (3.5-5.0); ALBUMIN/GLOBULIN RATIO 0.7 (0.8-2.0); ANION GAP 8.3 mmol/L (8-16); CALCIUM 7.3 mg/dL (8.4-10.2); CREATININE, SERUM 0.52 mg/dL (0.72-1.25); POTASSIUM 3.3 mmol/L (3.5-5.1)
[2022-10-22] MEDS: MULTIVITAMINS/MINERALS TAB PO SCH (08:00)
[2022-10-22] MEDS: LACTOBACILLUS ACIDOPHILUS CAPSULE PO SCH ×3 (08:00→21:08)
[2022-10-22] MEDS: MIDODRINE HCL 5 MG TABLET PO SCH ×3 (08:00→17:27)
[2022-10-22] MEDS ORDERED: POTASSIUM CHLORIDE 20MEQ/100ML 200 ML IV ONE (10:00)
[2022-10-22] MEDS: KCL 20MEQ/.9 SOD CHL 1,000 ML IV SCH (10:40)
[2022-10-22] MEDS ORDERED: ALTEPLASE RECOMBINANT 2 MG/2 ML VIAL IV ONE (14:45)
[2022-10-22] MEDS: ENOXAPARIN 30 MG/0.3 ML SYR SC SCH (17:26)
[2022-10-22] MEDS: FLUDROCORTISONE ACETATE 0.1 MG TAB PO SCH (17:26)
[2022-10-23] VITALS (8 sets, daily range): BP systolic 93–117; BP diastolic 60–70
[2022-10-23] MEDS: KCL 20MEQ/.9 SOD CHL 1,000 ML IV SCH ×3 (02:06→12:01)
[2022-10-23] MEDS ORDERED: CHOLESTYRAMINE 4 GM PACKET PO SCH (02:30)
[2022-10-23] MEDS ORDERED: FUROSEMIDE INJ 10 MG/ML 4 ML VIAL IV ONE (02:30)
[2022-10-23] MEDS: HYDROCORTISONE SOD SUCCINATE 100 MG VIAL IV SCH ×3 (05:01→21:22)
[2022-10-23 05:30] LABS: BASOPHILS % 0.3 % (0.0-1.0); HEMATOCRIT 28.2 % (38.2-49.6); HEMOGLOBIN 8.7 g/dL (14.0-18.0); LYMPHOCYTES % 24.2 % (18.0-39.1); MEAN CORPUSCULAR HGB CONC 30.9 g/dL (31-35); MONOCYTES # (AUTO) 0.3 (0.2-0.8); MONOCYTES % 7.6 % (4.4-11.3); NEUTROPHILS # (AUTO) 2.7 (2.1-6.9); NEUTROPHILS % 67.6 % (38.7-80.0); PLATELET COUNT 178 x10e3/uL (140-360); RED CELL DISTRIBUTION WIDTH 17.2 % (11.7-14.4)
[2022-10-23 05:57] LABS: ANION GAP 10.3 mmol/L (8-16); CALCIUM 7.5 mg/dL (8.4-10.2); CREATININE, SERUM 0.57 mg/dL (0.72-1.25); POTASSIUM 3.3 mmol/L (3.5-5.1)
[2022-10-23] MEDS: INSULIN LISPRO 100 UNIT/1 ML 3ML VIAL SQ SCH ×4 (07:30→21:00)
[2022-10-23] MEDS: CHOLESTYRAMINE 4 GM PACKET PO SCH ×2 (08:56→21:22)
[2022-10-23] MEDS: MIDODRINE HCL 5 MG TABLET PO SCH ×3 (08:56→15:43)
[2022-10-23] MEDS: MULTIVITAMINS/MINERALS TAB PO SCH (08:57)
[2022-10-23] MEDS: LACTOBACILLUS ACIDOPHILUS CAPSULE PO SCH ×3 (08:57→21:22)
[2022-10-23] MEDS: FLUDROCORTISONE ACETATE 0.1 MG TAB PO SCH ×2 (08:57→15:43)
[2022-10-23] MEDS ORDERED: FAMOTIDINE20 MG PO (09:07)
[2022-10-23] MEDS ORDERED: POTASSIUM CHLORIDE 20 MEQ TAB CR PO ONE (15:30)
[2022-10-23] MEDS: FUROSEMIDE INJ 10 MG/ML 4 ML VIAL IV SCH ×2 (15:42→21:22)
[2022-10-23] MEDS: ENOXAPARIN 30 MG/0.3 ML SYR SC SCH (16:12)
[2022-10-23] MEDS ORDERED: DIPHENOXYLATE/ATROPINE TAB PO STA (23:46)
[2022-10-24 00:44] VITALS: BP 100/65
[2022-10-24] MEDS: HYDROCORTISONE SOD SUCCINATE 100 MG VIAL IV SCH (05:37)
[2022-10-24 05:57] LABS: BASOPHILS % 0.3 % (0.0-1.0); EOSINOPHILS % 0.3 % (0.0-6.0); HEMOGLOBIN 8.4 g/dL (14.0-18.0); LYMPHOCYTES # (AUTO) 1.1 (1.0-3.2); LYMPHOCYTES % 31.7 % (18.0-39.1); MEAN CORPUSCULAR HEMOGLOBIN 29.1 pg (28-32); MEAN CORPUSCULAR HGB CONC 32.3 g/dL (31-35); MONOCYTES # (AUTO) 0.3 (0.2-0.8); MONOCYTES % 9.9 % (4.4-11.3); NEUTROPHILS % 57.5 % (38.7-80.0); PLATELET COUNT 156 x10e3/uL (140-360); RED BLOOD COUNT 2.89 x10e6/uL (4.3-5.7); RED CELL DISTRIBUTION WIDTH 17.6 % (11.7-14.4)
[2022-10-24 06:37] LABS: ANION GAP 11.7 mmol/L (8-16); CALCIUM 7.2 mg/dL (8.4-10.2); CREATININE, SERUM 0.54 mg/dL (0.72-1.25)
[2022-10-24 06:45] LABS: POTASSIUM 2.7 mmol/L (3.5-5.1)
[2022-10-24] MEDS: INSULIN LISPRO 100 UNIT/1 ML 3ML VIAL SQ SCH ×3 (07:30→16:30)
[2022-10-24] MEDS ORDERED: POTASSIUM CHLORIDE 10MEQ EA PO ONE (08:00)
[2022-10-24 08:40] VITALS: BP 104/67
[2022-10-24 08:52] VITALS: BP 104/67
[2022-10-24] MEDS: CHLORDIAZEPOXIDE/CLIDINIUM 1 CAP PO SCH ×3 (09:34→16:03)
[2022-10-24] MEDS: MULTIVITAMINS/MINERALS TAB PO SCH (09:34)
[2022-10-24] MEDS: MESALAMINE 400 MG CAP PO SCH ×2 (09:34→16:01)
[2022-10-24] MEDS: FUROSEMIDE INJ 10 MG/ML 4 ML VIAL IV SCH (09:34)
[2022-10-24] MEDS: CHOLESTYRAMINE 4 GM PACKET PO SCH (09:34)
[2022-10-24] MEDS: LACTOBACILLUS ACIDOPHILUS CAPSULE PO SCH ×2 (09:34→16:03)
[2022-10-24] MEDS: FLUDROCORTISONE ACETATE 0.1 MG TAB PO SCH ×2 (09:34→16:03)
[2022-10-24] MEDS: MIDODRINE HCL 5 MG TABLET PO SCH ×3 (09:34→16:03)
[2022-10-24] MEDS ORDERED: POTASSIUM CHLORIDE 20 MEQ TAB CR PO ONE (11:45)
[2022-10-24 12:22] VITALS: BP 96/71
[2022-10-24] MEDS ORDERED: FLORINEF ACETA0.1 MG PO (12:54)
[2022-10-24] MEDS ORDERED: MIDODRINE HCL5 MG PO (12:54)
[2022-10-24] MEDS ORDERED: ONDANSETRON HCL 4 MG ORAL DISINTEGRATING TAB PO PRN (13:30)
[2022-10-24] MEDS ORDERED: PANTOPRAZOLE SOD 40 MG TABEC PO SCH (14:00)
[2022-10-24] MEDS: ENOXAPARIN 30 MG/0.3 ML SYR SC SCH (16:04)
== END 2022-10-24 17:50 | disposition home or self-care (01) | DRG 871 ==
LOC: ER 19:09 → ERHOLD 21:32 → ICU 23:59 → MED/SURG2 10-22 13:21
PROVIDERS: ADMIT Internal Medicine; ATTEND Internal Medicine
PROC: 02HV33Z Insertion of Infusion Device into Superior Vena Cava, Percutaneous Approach (ICD-10-PCS; principal; 2022-10-10)
PROC: 3E04329 Introduction of Other Anti-infective into Central Vein, Percutaneous Approach (ICD-10-PCS; 2022-10-10)
PROC: 05HY33Z Insertion of Infusion Device into Upper Vein, Percutaneous Approach (ICD-10-PCS; 2022-10-10)
PROC: 3E043XZ Introduction of Vasopressor into Central Vein, Percutaneous Approach (ICD-10-PCS; 2022-10-10)
PROC: 30243N1 Transfusion of Nonautologous Red Blood Cells into Central Vein, Percutaneous Approach (ICD-10-PCS; 2022-10-11)
DX: A41.9 Sepsis, unspecified organism (principal); E43 Unspecified severe protein-calorie malnutrition; R65.21 Severe sepsis with septic shock; R57.1 Hypovolemic shock; E27.40 Unspecified adrenocortical insufficiency; E44.0 Moderate protein-calorie malnutrition; D62 Acute posthemorrhagic anemia; K51.00 Ulcerative (chronic) pancolitis without complications; R10.9 Unspecified abdominal pain; E87.8 Other disorders of electrolyte and fluid balance, not elsewhere classified; E87.6 Hypokalemia; Z68.28 Body mass index [BMI] 28.0-28.9, adult; K52.89 Other specified noninfective gastroenteritis and colitis; D69.6 Thrombocytopenia, unspecified; D64.9 Anemia, unspecified; Z74.01 Bed confinement status; E83.51 Hypocalcemia; E83.42 Hypomagnesemia; R15.9 Full incontinence of feces; Z20.822 Contact with and (suspected) exposure to COVID-19; K21.9 Gastro-esophageal reflux disease without esophagitis; E86.0 Dehydration; T14.8XXS Other injury of unspecified body region, sequela; R19.7 Diarrhea, unspecified; E11.9 Type 2 diabetes mellitus without complications; R29.818 Other symptoms and signs involving the nervous system
CPT/HCPCS: 36415; 36569; 71045; 74018; 74019; 74177; 74230; 80048; 80053; 80076; 81001; 82150; 82533; 82550; 82553; 82948; 83540; 83605; 83630; 83690; 83735; 84100; 84132; 84436; 84443; 84466; 84479; 84484; 85025; 86850; 86900; 86920; 87040; 87045; 87086; 87177; 87324; 87390; 87449; 93005; 96372; 99251; 99284; G0433; G0435; J0696; J1650; J1720; J1817; J1940; J1956; J2405; J2543; J2997; J3411; J3475; J3480; J7030; J7050; J7121; P9016; P9047; Q9967

== ENCOUNTER 2025-02-17 18:58 | Inpatient (IN) | payer MEDICAID ==
[~2025-02-17] VITALS: Ht 175.3 cm; Wt 88.0 kg
[~2025-02-17 18:58] MED LIST changes: +FAMOTIDINE20 MG PO; +FLORINEF ACETA0.1 MG PO; +MIDODRINE HCL5 MG PO
[2025-02-17 19:13] VITALS: TEMP 98.6
[2025-02-17] MEDS ORDERED: SODIUM CHLORIDE 0.9% 1000ML 1,000 ML IV ONE ×2 (19:15→21:30)
[2025-02-17] MEDS ORDERED: SODIUM CHLORIDE 0.9% 100 ML ONE (19:27)
[2025-02-17] MEDS ORDERED: CEFTRIAXONE 2 GM VIAL ONE (19:27)
[2025-02-17] MEDS ORDERED: SODIUM CHLORIDE 0.9% 1000ML 2,000 ML ONE (19:28)
[2025-02-17] MEDS: CEFTRIAXONE 2 GM in SODIUM CHLORIDE 0.9% 100 ML IV ONE (19:35)
[2025-02-17] MEDS: ACETAMINOPHEN 1000 MG/100 ML IV ONE (19:36)
[2025-02-17] MEDS: SODIUM CHLORIDE 0.9% 1000ML 2,650 ML IV SCH (19:36)
[2025-02-17 19:38] LABS: BASOPHILS # (AUTO) 0.1 (0.0-0.1); BASOPHILS % 0.1 % (0.0-1.0); HEMOGLOBIN 7.4 g/dL (14.0-18.0); LYMPHOCYTES # (AUTO) 0.4 (1.0-3.2); LYMPHOCYTES % 0.9 % (18.0-39.1); MEAN CORPUSCULAR HEMOGLOBIN 27.4 pg (28-32); MEAN CORPUSCULAR HGB CONC 33.6 g/dL (31-35); MEAN CORPUSCULAR VOLUME 81.5 fL (81-99); MONOCYTES # (AUTO) 0.9 (0.2-0.8); MONOCYTES % 2.3 % (4.4-11.3); NEUTROPHILS # (AUTO) 36.7 (2.1-6.9); NEUTROPHILS % 94.1 % (38.7-80.0); PLATELET COUNT 416 x10e3/uL (140-360); RED CELL DISTRIBUTION WIDTH 18.6 % (11.7-14.4); WHITE BLOOD COUNT 38.99 x10e3/uL (4.8-10.8)
[2025-02-17 19:48] LABS: INR 1.18; PROTHROMBIN TIME 15.7 seconds (11.9-14.5)
[2025-02-17 19:49] LABS: PARTIAL THROMBOPLASTIN TIME 41.2 seconds (23.8-35.5)
[2025-02-17 20:00] LABS: CORONAVIRUS COVID-19 AG NEGATIVE (NEGATIVE); INFLUENZA A AG NEGATIVE (NEGATIVE); INFLUENZA B AG NEGATIVE (NEGATIVE)
[2025-02-17 20:04] LABS: TROPONIN I 0.099 ng/mL (0-0.300)
[2025-02-17 20:06] LABS: ALANINE AMINOTRANSFERASE 38 IU/L (0-55); ALBUMIN 1.2 g/dL (3.5-5.0); ALBUMIN/GLOBULIN RATIO 0.3 (0.8-2.0); ALKALINE PHOSPHATASE 218 IU/L (40-150); ANION GAP 17.6 mmol/L (8-16); BILIRUBIN,TOTAL 0.3 mg/dL (0.2-1.2); CALCIUM 7.8 mg/dL (8.4-10.2); CARBON DIOXIDE 21 mmol/L (22-29); CHLORIDE 88 mmol/L (98-107); CREATINE KINASE 87 IU/L (30-200); CREATININE, SERUM 1.88 mg/dL (0.72-1.25); EST GLOMERULAR FILTRATION RATE 40 ML/MIN (>=60); GLUCOSE 132 mg/dL (74-118); POTASSIUM 4.6 mmol/L (3.5-5.1); SODIUM 122 mmol/L (136-145); TOTAL PROTEIN 5.9 g/dL (6.5-8.1)
[2025-02-17 20:08] LABS: BLOOD UREA NITROGEN 143 mg/dL (7-26)
[2025-02-17 20:23] LABS: BAND NEUTROPHILS % (MANUAL) 3 %; LYMPHOCYTES % (MANUAL) 1 % (19-48); MONOCYTES % (MANUAL) 2 % (3.4-9.0); NEUTROPHILS % (MANUAL) 94 % (40-74)
[2025-02-17 20:24] LABS: PLATELET ESTIMATE ADEQUATE; PLATELET MORPHOLOGY COMMENT NORMAL; RBC MORPHOLOGY COMMENT NORMAL
[2025-02-17 20:25] LABS: ANISOCYTOSIS SLIGHT
[2025-02-17 20:39] LABS: CLARITY,URINE CLOUDY (CLEAR); COLOR,URINE YELLOW (YELLOW); LEUKOCYTE ESTERASE ,URINE LARGE (NEGATIVE); NITRITE,URINE NEGATIVE (NEGATIVE); PH,URINE 5.5 (5 - 7)
[2025-02-17 20:40] LABS: BILIRUBIN,URINE NEGATIVE (NEGATIVE); GLUCOSE, URINE NEGATIVE (NEGATIVE); KETONES,URINE NEGATIVE (NEGATIVE); PROTEIN,URINE DIPSTICK 1+ (NEGATIVE); URINE UROBILINOGEN 0.2 mg/dL (0.2 - 1)
[2025-02-17 20:41] LABS: WBC,URINE (MAN) >50 /HPF (0-5)
[2025-02-17 20:42] LABS: YEAST,URINE FEW
[2025-02-17 20:43] LABS: BACTERIA,URINE MANY /HPF; EPITHELIAL CELLS,URINE RARE /LPF
[2025-02-17 21:30] VITALS: PULSE 113; RESP 20; O2SAT 100
[2025-02-17] MEDS ORDERED: DEXTROSE 50% SYRINGE 50 ML IV PRN (21:30)
[2025-02-17] MEDS ORDERED: ONDANSETRON HCL INJ 2MG/ML 2ML 2 MG/ML VIAL IV PRN (21:30)
[2025-02-17 22:00] VITALS: PULSE 113; RESP 22
[2025-02-17] MEDS: VASOPRESSIN 60 UNIT in DEXTROSE 5% 50ML 50 ML IV SCH (22:15)
[2025-02-17] MEDS ORDERED: ACETAMINOPHEN 325 MG TAB PO PRN (22:15)
[2025-02-17] MEDS ORDERED: MIDODRINE HCL 5 MG TABLET ONE (22:21)
[2025-02-17] MEDS: MIDODRINE 2.5 MG TAB PO SCH (22:33)
[2025-02-17] MEDS: SODIUM CHLORIDE 0.9% 1000ML 1,000 ML IV SCH (22:34)
[2025-02-17] MEDS: HYDROCORTISONE SOD SUCCINATE 100 MG VIAL IV ONE (22:34)
[2025-02-17] MEDS: MEROPENEM 1 GM in SODIUM CHLORIDE 0.9% 100 ML IV SCH (22:34)
[2025-02-17] MEDS: METRONIDAZOLE 500MG/NS 100ML 100 ML IV SCH (22:34)
[2025-02-17 23:00] VITALS: BP 86/57; PULSE 108; RESP 20; TEMP 98.6; O2SAT 100
[2025-02-17] MEDS: MUPIROCIN 2% OINT 22 GM TUBE TOP SCH (23:00)
[2025-02-17] MEDS: Vancomycin IV 1.25 GM in SODIUM CHLORIDE 0.9% 250ML 250 ML IV ONE (23:17)
[2025-02-17 23:33] VITALS: BP 82/52; PULSE 104; RESP 18; TEMP 98.6; O2SAT 100
[2025-02-17 23:45] VITALS: BP 85/56; PULSE 104; RESP 17; O2SAT 100
[2025-02-18] VITALS (29 sets, daily range): BP systolic 76–101; BP diastolic 54–72; PULSE 91–107; RESP 12–22; TEMP 96.8–98.6; O2SAT 96–100
[2025-02-18] MEDS: SODIUM CHLORIDE 0.9% 250ML 250 ML IV ONE (00:07)
[2025-02-18 07:01] LABS: BASOPHILS # (AUTO) 0.1 (0.0-0.1); BASOPHILS % 0.3 % (0.0-1.0); HEMOGLOBIN 10.3 g/dL (14.0-18.0); LYMPHOCYTES # (AUTO) 0.6 (1.0-3.2); LYMPHOCYTES % 2.1 % (18.0-39.1); MEAN CORPUSCULAR HGB CONC 33.2 g/dL (31-35); MEAN CORPUSCULAR VOLUME 84.2 fL (81-99); MONOCYTES # (AUTO) 0.4 (0.2-0.8); MONOCYTES % 1.6 % (4.4-11.3); NEUTROPHILS # (AUTO) 25.6 (2.1-6.9); NEUTROPHILS % 94.6 % (38.7-80.0); PLATELET COUNT 272 x10e3/uL (140-360); RED BLOOD COUNT 3.68 x10e6/uL (4.3-5.7); RED CELL DISTRIBUTION WIDTH 16.9 % (11.7-14.4); WHITE BLOOD COUNT 27.06 x10e3/uL (4.8-10.8)
[2025-02-18] MEDS: INSULIN REGULAR, HUMAN 100 UNIT/1 ML SQ SCH (07:30)
[2025-02-18 07:46] LABS: ALANINE AMINOTRANSFERASE 42 IU/L (0-55); ALBUMIN 1.2 g/dL (3.5-5.0); ALBUMIN/GLOBULIN RATIO 0.3 (0.8-2.0); ALKALINE PHOSPHATASE 213 IU/L (40-150); ANION GAP 17.3 mmol/L (8-16); BILIRUBIN,TOTAL 0.3 mg/dL (0.2-1.2); CALCIUM 7.5 mg/dL (8.4-10.2); CARBON DIOXIDE 19 mmol/L (22-29); CHLORIDE 94 mmol/L (98-107); CREATININE, SERUM 1.74 mg/dL (0.72-1.25); EST GLOMERULAR FILTRATION RATE 44 ML/MIN (>=60); GLUCOSE 137 mg/dL (74-118); POTASSIUM 4.3 mmol/L (3.5-5.1); SODIUM 126 mmol/L (136-145); TOTAL PROTEIN 5.8 g/dL (6.5-8.1)
[2025-02-18 07:52] LABS: BLOOD UREA NITROGEN 128 mg/dL (7-26)
[2025-02-18 07:54] LABS: BAND NEUTROPHILS % (MANUAL) 2 %; LYMPHOCYTES % (MANUAL) 1 % (19-48); MONOCYTES % (MANUAL) 2 % (3.4-9.0); NEUTROPHILS % (MANUAL) 95 % (40-74)
[2025-02-18 07:55] LABS: PLATELET ESTIMATE ADEQUATE; PLATELET MORPHOLOGY COMMENT NORMAL; RBC MORPHOLOGY COMMENT NORMAL
[2025-02-18 07:56] LABS: TROPONIN I 0.073 ng/mL (0-0.300)
[2025-02-18] MEDS: HEPARIN SOD (PORCINE) 5,000 UNIT/ML VIAL SC SCH (08:43)
[2025-02-18] MEDS: VASOPRESSIN 60 UNIT in DEXTROSE 5% 50ML 57 ML IV SCH (14:15)
[2025-02-18 16:09] LABS: TROPONIN I 0.07 ng/mL (0-0.300)
[2025-02-19] VITALS (25 sets, daily range): BP systolic 79–105; BP diastolic 54–75; PULSE 91–105; RESP 4–21; TEMP 97.3–97.8; O2SAT 97–100
[2025-02-19 07:16] LABS: ANION GAP 17.2 mmol/L (8-16); CALCIUM 7.5 mg/dL (8.4-10.2); CARBON DIOXIDE 18 mmol/L (22-29); CHLORIDE 97 mmol/L (98-107); CREATININE, SERUM 1.68 mg/dL (0.72-1.25); EST GLOMERULAR FILTRATION RATE 45 ML/MIN (>=60); GLUCOSE 81 mg/dL (74-118); MAGNESIUM 1.9 MG/DL (1.3-2.1); PHOSPHORUS 4.4 MG/DL (2.3-4.7); POTASSIUM 4.2 mmol/L (3.5-5.1); SODIUM 128 mmol/L (136-145)
[2025-02-19 07:17] LABS: BLOOD UREA NITROGEN 130 mg/dL (7-26)
[2025-02-19] MEDS: SODIUM CHLORIDE 0.9% 250ML 250 ML ONE (09:04)
[2025-02-19] MEDS: MIDODRINE HCL 5 MG TABLET ONE ×2 (09:05→12:49)
[2025-02-19] MEDS: HYDROCODONE/APAP 5MG-325MG TAB PO PRN (09:07)
[2025-02-19 11:31] LABS: BODY FLUID APPEARANCE CLEAR; BODY FLUID COLOR YELLOW; BODY FLUID TYPE PLEURAL; RBC,BODY FLUID 0 cells/uL; WBC,BODY FLUID 117 cells/uL
[2025-02-19] MEDS: INSULIN REGULAR, HUMAN 100 UNIT/1 ML SQ SCH (12:30)
[2025-02-19] MEDS: HYDROMORPHONE 1MG/1ML INJ IV ONE (12:36)
[2025-02-19 14:54] LABS: LYMPHOCYTES,BODY FLUID 19 %; MONO/MACROPHG,BODY FLUID 25 %; NEUTROPHILS,BODY FLUID 30 %; OTHER CELLS,BODY FLUID 26 %; TOTAL CELLS COUNTED (DIFF) 100
[2025-02-19] MEDS: COLLAGENASE OINTMENT 30 GM TUBE TP SCH (16:57)
[2025-02-20] VITALS (28 sets, daily range): BP systolic 93–114; BP diastolic 58–74; PULSE 88–104; RESP 11–17; TEMP 97.5–98.6; O2SAT 100
[2025-02-20 06:41] LABS: BASOPHILS % 0.2 % (0.0-1.0); EOSINOPHILS % 0.1 % (0.0-6.0); HEMATOCRIT 31.9 % (38.2-49.6); HEMOGLOBIN 10.4 g/dL (14.0-18.0); LYMPHOCYTES # (AUTO) 1.3 (1.0-3.2); LYMPHOCYTES % 6.5 % (18.0-39.1); MEAN CORPUSCULAR HEMOGLOBIN 27.7 pg (28-32); MEAN CORPUSCULAR HGB CONC 32.6 g/dL (31-35); MEAN CORPUSCULAR VOLUME 84.8 fL (81-99); MONOCYTES # (AUTO) 1.2 (0.2-0.8); MONOCYTES % 5.9 % (4.4-11.3); NEUTROPHILS # (AUTO) 16.9 (2.1-6.9); NEUTROPHILS % 86.1 % (38.7-80.0); PLATELET COUNT 258 x10e3/uL (140-360); RED BLOOD COUNT 3.76 x10e6/uL (4.3-5.7); RED CELL DISTRIBUTION WIDTH 17.5 % (11.7-14.4); WHITE BLOOD COUNT 19.61 x10e3/uL (4.8-10.8)
[2025-02-20 07:01] LABS: INR 1.33; PROTHROMBIN TIME 17.2 seconds (11.9-14.5)
[2025-02-20 07:27] LABS: ALBUMIN 1.2 g/dL (3.5-5.0); ALBUMIN/GLOBULIN RATIO 0.3 (0.8-2.0); ANION GAP 15.5 mmol/L (8-16); BILIRUBIN,TOTAL 0.2 mg/dL (0.2-1.2); CALCIUM 7.2 mg/dL (8.4-10.2); CREATININE, SERUM 1.67 mg/dL (0.72-1.25); POTASSIUM 4.5 mmol/L (3.5-5.1); TOTAL PROTEIN 5.4 g/dL (6.5-8.1)
[2025-02-20 20:00] LABS: OSMOLALITY,SERUM OSMOMETER 305 mOsmol/kg (280-301); OSMOLALITY,URINE 345 mOsmol/kg (.)
[2025-02-21] VITALS (20 sets, daily range): BP systolic 93–107; BP diastolic 63–73; PULSE 93–107; RESP 12–20; TEMP 97.8–98.2; O2SAT 100
[2025-02-21 08:45] LABS: ANION GAP 17.5 mmol/L (8-16); CALCIUM 7.2 mg/dL (8.4-10.2); CREATININE, SERUM 1.6 mg/dL (0.72-1.25); POTASSIUM 4.5 mmol/L (3.5-5.1)
[2025-02-21] MEDS: FUROSEMIDE INJ 10 MG/ML 4 ML VIAL IV SCH (20:41)
[2025-02-22] VITALS (14 sets, daily range): BP systolic 85–114; BP diastolic 62–78; PULSE 102–113; RESP 15–20; TEMP 97.7–98; O2SAT 99–100
[2025-02-22 06:36] LABS: BASOPHILS % 0.1 % (0.0-1.0); EOSINOPHILS % 0.2 % (0.0-6.0); HEMOGLOBIN 9.4 g/dL (14.0-18.0); LYMPHOCYTES % 6.1 % (18.0-39.1); MEAN CORPUSCULAR HEMOGLOBIN 27.9 pg (28-32); MEAN CORPUSCULAR HGB CONC 32.4 g/dL (31-35); MEAN CORPUSCULAR VOLUME 86.1 fL (81-99); MONOCYTES # (AUTO) 0.8 (0.2-0.8); MONOCYTES % 5.4 % (4.4-11.3); NEUTROPHILS # (AUTO) 13.5 (2.1-6.9); PLATELET COUNT 219 x10e3/uL (140-360); RED BLOOD COUNT 3.37 x10e6/uL (4.3-5.7); RED CELL DISTRIBUTION WIDTH 17.9 % (11.7-14.4); WHITE BLOOD COUNT 15.55 x10e3/uL (4.8-10.8)
[2025-02-22 07:08] LABS: ALBUMIN 1.1 g/dL (3.5-5.0); ALBUMIN/GLOBULIN RATIO 0.3 (0.8-2.0); ANION GAP 15.8 mmol/L (8-16); BILIRUBIN,TOTAL 0.2 mg/dL (0.2-1.2); CREATININE, SERUM 1.55 mg/dL (0.72-1.25); POTASSIUM 4.8 mmol/L (3.5-5.1); TOTAL PROTEIN 5.2 g/dL (6.5-8.1)
[2025-02-22] MEDS: SODIUM HYPOCHLORITE 0.5% 480 ML BTL TOP PRN (17:02)
[2025-02-23 06:12] LABS: BASOPHILS % 0.2 % (0.0-1.0); EOSINOPHILS % 0.3 % (0.0-6.0); HEMATOCRIT 28.8 % (38.2-49.6); HEMOGLOBIN 9.3 g/dL (14.0-18.0); LYMPHOCYTES % 7.1 % (18.0-39.1); MEAN CORPUSCULAR HEMOGLOBIN 27.8 pg (28-32); MEAN CORPUSCULAR HGB CONC 32.3 g/dL (31-35); MEAN CORPUSCULAR VOLUME 86.2 fL (81-99); MONOCYTES # (AUTO) 0.9 (0.2-0.8); MONOCYTES % 6.3 % (4.4-11.3); NEUTROPHILS # (AUTO) 12.2 (2.1-6.9); NEUTROPHILS % 84.6 % (38.7-80.0); PLATELET COUNT 207 x10e3/uL (140-360); RED BLOOD COUNT 3.34 x10e6/uL (4.3-5.7); RED CELL DISTRIBUTION WIDTH 17.9 % (11.7-14.4); WHITE BLOOD COUNT 14.47 x10e3/uL (4.8-10.8)
[2025-02-23 07:00] VITALS: BP 105/66; PULSE 109; RESP 18; TEMP 97.8; O2SAT 99
[2025-02-23 07:49] LABS: ALBUMIN 1.1 g/dL (3.5-5.0); ALBUMIN/GLOBULIN RATIO 0.3 (0.8-2.0); ANION GAP 15.1 mmol/L (8-16); BILIRUBIN,TOTAL 0.3 mg/dL (0.2-1.2); CALCIUM 7.1 mg/dL (8.4-10.2); CREATININE, SERUM 1.53 mg/dL (0.72-1.25); POTASSIUM 5.1 mmol/L (3.5-5.1)
[2025-02-23 09:47] VITALS: BP 105/66; PULSE 109; RESP 18; TEMP 97.8; O2SAT 99
[2025-02-23 11:00] VITALS: BP 110/74; PULSE 107; RESP 17; TEMP 98.1; O2SAT 100
[2025-02-23 15:00] VITALS: BP 106/68; PULSE 108; RESP 17; TEMP 97.6; O2SAT 100
[2025-02-23 20:00] VITALS: BP 119/77; PULSE 109; RESP 16; TEMP 97.6; O2SAT 99
[2025-02-23 22:00] VITALS: BP 114/80; PULSE 108; RESP 23; O2SAT 100
[2025-02-24] VITALS (18 sets, daily range): BP systolic 94–126; BP diastolic 25–88; PULSE 105–120; RESP 12–19; TEMP 97.5–98.4; O2SAT 100
[2025-02-24 07:15] LABS: ANION GAP 14.2 mmol/L (8-16); CALCIUM 7.5 mg/dL (8.4-10.2); CREATININE, SERUM 1.5 mg/dL (0.72-1.25)
[2025-02-24 07:25] LABS: POTASSIUM 5.2 mmol/L (3.5-5.1)
[2025-02-24 08:22] LABS: BASOPHILS % 0.2 % (0.0-1.0); EOSINOPHILS % 0.1 % (0.0-6.0); HEMATOCRIT 31.9 % (38.2-49.6); HEMOGLOBIN 10.3 g/dL (14.0-18.0); LYMPHOCYTES % 5.4 % (18.0-39.1); MEAN CORPUSCULAR HEMOGLOBIN 28.1 pg (28-32); MEAN CORPUSCULAR HGB CONC 32.3 g/dL (31-35); MEAN CORPUSCULAR VOLUME 86.9 fL (81-99); MONOCYTES % 5.2 % (4.4-11.3); NEUTROPHILS # (AUTO) 16.7 (2.1-6.9); NEUTROPHILS % 87.5 % (38.7-80.0); PLATELET COUNT 221 x10e3/uL (140-360); RED BLOOD COUNT 3.67 x10e6/uL (4.3-5.7); WHITE BLOOD COUNT 19.06 x10e3/uL (4.8-10.8)
[2025-02-24] MEDS: SODIUM HYPOCHLORITE 0.25% 480 ML SOLN IR SCH (16:20)
[2025-02-25] VITALS (13 sets, daily range): BP systolic 85–127; BP diastolic 19–96; PULSE 101–118; RESP 12–20; TEMP 97.8–98; O2SAT 100
[2025-02-25 06:46] LABS: ANION GAP 14.4 mmol/L (8-16); CALCIUM 7.7 mg/dL (8.4-10.2); CREATININE, SERUM 1.44 mg/dL (0.72-1.25)
[2025-02-25 06:49] LABS: POTASSIUM 5.4 mmol/L (3.5-5.1)
[2025-02-25] MEDS: MEROPENEM 1 GM in SODIUM CHLORIDE 0.9% 100 ML IV SCH (11:14)
[2025-02-25] MEDS: FENTANYL 25 MCG/HR PATCH TOP SCH (11:14)
[2025-02-26] VITALS (7 sets, daily range): BP systolic 66–119; BP diastolic 46–77; PULSE 104–118; RESP 16–19; TEMP 97.6–98.6; O2SAT 100
[2025-02-26] MEDS: ALBUMIN 5% 0.05 GM/ML BTL IV ONE (08:06)
[2025-02-27 11:43] LABS: TOTAL PROTEIN,BODY FLUID 2.7 g/dL
== END 2025-02-26 10:22 | disposition hospice, home (50) | DRG 698 ==
LOC: ER 19:09 → ERHOLD 21:23 → ICU 22:45
PROVIDERS: ADMIT Internal Medicine; ATTEND Internal Medicine
PROC: 30233N1 Transfusion of Nonautologous Red Blood Cells into Peripheral Vein, Percutaneous Approach (ICD-10-PCS; principal; 2025-02-17)
PROC: 3E0333Z Introduction of Anti-inflammatory into Peripheral Vein, Percutaneous Approach (ICD-10-PCS; 2025-02-17)
PROC: 3E033XZ Introduction of Vasopressor into Peripheral Vein, Percutaneous Approach (ICD-10-PCS; 2025-02-17)
PROC: 02HV33Z Insertion of Infusion Device into Superior Vena Cava, Percutaneous Approach (ICD-10-PCS; 2025-02-18)
PROC: 0W9B3ZZ Drainage of Left Pleural Cavity, Percutaneous Approach (ICD-10-PCS; 2025-02-19)
DX: T83.511A Infection and inflammatory reaction due to indwelling urethral catheter, initial encounter (principal); A41.52 Sepsis due to Pseudomonas; R57.8 Other shock; J69.0 Pneumonitis due to inhalation of food and vomit; L89.124 Pressure ulcer of left upper back, stage 4; L89.114 Pressure ulcer of right upper back, stage 4; E43 Unspecified severe protein-calorie malnutrition; R65.20 Severe sepsis without septic shock; L89.154 Pressure ulcer of sacral region, stage 4; L89.894 Pressure ulcer of other site, stage 4; L89.513 Pressure ulcer of right ankle, stage 3; R53.2 Functional quadriplegia; E87.20 Acidosis, unspecified; J90 Pleural effusion, not elsewhere classified; D68.9 Coagulation defect, unspecified; N13.6 Pyonephrosis; N17.9 Acute kidney failure, unspecified; E27.40 Unspecified adrenocortical insufficiency; E87.1 Hypo-osmolality and hyponatremia; Z16.19 Resistance to other specified beta lactam antibiotics; N13.8 Other obstructive and reflux uropathy; J98.11 Atelectasis; R62.7 Adult failure to thrive; Z51.5 Encounter for palliative care; Z66 Do not resuscitate; Z11.52 Encounter for screening for COVID-19; L89.130 Pressure ulcer of right lower back, unstageable; L89.140 Pressure ulcer of left lower back, unstageable; L89.620 Pressure ulcer of left heel, unstageable; L89.220 Pressure ulcer of left hip, unstageable; L89.320 Pressure ulcer of left buttock, unstageable; E83.51 Hypocalcemia; I12.9 Hypertensive chronic kidney disease with stage 1 through stage 4 chronic kidney disease, or unspecified chronic kidney disease; E11.22 Type 2 diabetes mellitus with diabetic chronic kidney disease; N31.9 Neuromuscular dysfunction of bladder, unspecified; R33.9 Retention of urine, unspecified; N18.9 Chronic kidney disease, unspecified; D64.9 Anemia, unspecified; E86.1 Hypovolemia; E86.0 Dehydration; R79.89 Other specified abnormal findings of blood chemistry; K21.9 Gastro-esophageal reflux disease without esophagitis; N23 Unspecified renal colic; B37.9 Candidiasis, unspecified; R53.81 Other malaise; M62.49 Contracture of muscle, multiple sites; Z68.28 Body mass index [BMI] 28.0-28.9, adult; S14.109S Unspecified injury at unspecified level of cervical spinal cord, sequela; Y84.6 Urinary catheterization as the cause of abnormal reaction of the patient, or of later complication, without mention of misadventure at the time of the procedure; Z99.3 Dependence on wheelchair; Z93.1 Gastrostomy status; Z96.0 Presence of urogenital implants; Z90.49 Acquired absence of other specified parts of digestive tract
CPT/HCPCS: 32555; 36415; 36569; 71045; 71250; 74176; 74470; 80048; 80053; 81001; 82550; 82948; 83605; 83615; 83735; 83930; 83935; 84100; 84157; 84300; 84443; 84478; 84484; 85025; 85610; 85730; 86850; 86900; 86920; 87040; 87070; 87086; 87186; 87205; 89051; 93005; 94799; 99252; 99284; C1729; J0696; J1171; J1644; J1720; J1938; J2185; J2470; J7030; J7050; P9016